=== PATIENT | male | born 1950 | race Caucasian/White ===

== ENCOUNTER 2024-09-20 11:12 | Outpatient (AMB) | payer MEDICARE, MEDICAID, SELFPAY ==
--- NOTE | 2024-09-20 11:14 | MHC.OFFVIS ---
Vital Signs 09/20/24 11:25 Height 5 ft 11 in Weight 193 lb 6 oz BMI 27.0 BP 116/76 Blood Pressure Location Lt brachial Position Sitting Respiration 16 Pulse 60 Pulse Source Pulse Oximeter Pulse Oximetry (%) 96 Oxygen Delivery Method Room Air Intake Visit Reasons: ITDD Discussion Intake Note: Patient comes in for initial visit was referred by [facility]. Reports pain 8/10. Allergies No Known Allergies Allergy (Verified 09/20/24 11:20) HPI Comments Details: Lv is very pleasant 73 years old gentleman who came to my office by referral of Dr. Lopez.. He reports that he complains on severe widespread pain, he came here to discuss treatment of the pain with intrathecal pain pump. He reports that he is suffering from widespread severe degenerative arthritis in bilateral lower extremities, feet he reports severe pain in the left hand, he has his right hand partially amputated, he states that it is industrial accident. He also complains on severe pain in lumbar spine, and pain in the neck. He reports his pain today 8/10. He reports that pain in the lower back is aggravated by flexing forward and prolonged sitting. He he is retired individual and on permanent disability. His pain in the feet is related to the broken bone in both feet. He needs walker for ambulation. Uses a special crutch today for his right hand to assist with walking. He reports that cold aggravate his pain and heat application make his pain better. His pain is most severe in the morning. He is currently taking OxyContin and methadone prescribed by Dr. Lopez. He had physical therapy done in the fall of 2022 < 1 year ago he reports improvement in mobility, improved activities of daily living, and minimal improvement with pain. He continues home exercise program. He had an MRI of the lumbar spine performed on him long time ago. He had injections performed on him by Dr. Lopez and before Dr. Lopez by other colleagues in the lumbar spine he denies any help from the injections. His past medical history significant for hypertension gout and arthritis. His past surgical history is significant for total knee replacement right 1995 total knee replacement left 1996 total shoulder replacement right 1996 and total shoulder replacement left 1997 traumatic amputation of the right hand 1983. He denies smoking cigarettes denies drinking alcohol and denies recreational drugs. She reports that that in the past he had 1 episode of excessive drinking and since then he stopped drinking 1 year ago. He does not have any history of rehab. Review of Systems ENT Reports Normal hearing present Card Reports no additional complaints Resp Reports no additional complaints GI Reports no additional complaints Reports no additional complaints Musc Reports as per HPI Neuro Reports no additional complaints, Reports Normal hearing present, Denies Abnormal speech present and Denies Sensory deficit (Neuro) Psych Reports no additional complaints Endo Reports no additional complaints Physical Exam Vital Signs: Last Vital Signs Pulse 60 09/20/24 11:25 Resp 16 09/20/24 11:25 BP 116/76 09/20/24 11:25 Pulse Ox 96 09/20/24 11:25 Oxygen Delivery Method Room Air 09/20/24 11:25 BMI result Body Mass Index 27.0 Const General: no acute distress Nutritional Appearance: average body habitus and well nourished Orientation/consciousness: patient oriented x3 Eyes General: appearance normal, both eyes and all related structures Pupils: Equal, round and reactive pupils present EOM: EOMs intact bilaterally Neck Neck: Yes full ROM Chest Chest palpation & inspection: normal inspection of the chest Resp Effort & Inspection: normal respiratory effort, able to speak in complete sentences, normal respiratory pattern, no audible wheezes and no cough Cardio Jugular venous distension: no JVD GI Inspection: Yes normal to inspection Back/Spine/Pelvis Other: Tenderness on palpation in projection of paraspinal spinal region lumbar spine. Flexing forward aggravates pain more than flexing backwards. Pain is axial in nature and does not radiate into sides or bilateral lower extremity. Neuro General: patient oriented x3 and gait normal Cranial nerves: Yes CN's II-XII intact bilaterally, Yes Equal, round and reactive pupils present, Yes Normal hearing present and Yes Ability to bilaterally elevate shoulders present Speech: No Abnormal speech present Gait exam (Neuro): Normal gait present Motor exam (neuro): 5/5 motor strength present throughout Sensory Exam: No Sensory deficit (Neuro) Extrem Other: Traumatic amputation of the right hand partial. In the projection of bilateral knees and bilateral shoulders there are very well-healed scar secondary to total shoulders and total knee replacements. General: No pedal edema Psych Speech and movement: Normal speech and movement present Affect: normal affect Attitude: cooperative Thought process: Normal thought process present Thought content: Normal thought content present Insight: Good insight present (Psych) Judgement: Good judgement present (Psych) Assessment & Plan Assessment & Plan (1) Vertebrogenic low back pain: Code(s): M54.51 - Vertebrogenic low back pain Category: Medical (2) Generalized osteoarthritis: Code(s): M15.9 - Polyosteoarthritis, unspecified Category: Medical (3) Gout, arthritis: Code(s): M10.9 - Gout, unspecified Category: Medical (4) Chronic pain syndrome: Code(s): G89.4 - Chronic pain syndrome Category: Medical (5) Spondylosis of lumbar region without myelopathy or radiculopathy: Code(s): M47.816 - Spondylosis without myelopathy or radiculopathy, lumbar region Category: Medical Plan I explained to the patient nature of the intrathecal drug delivery system pain pump, the risks and most common complications of the device. I gave him brochure to read aboutintrathecal pain pump. The patient will read brochure and he will decide whether or not this mode of treatment is appropriate for him. He will give us a call and we will send him for psychological evaluation. Once he is approved by [facility] psychology we would need to schedule him for a pain pump trial. We can start doing trials with non opioid medications. I am thinking about bupivacaine and baclofen trials. Prialt also can not be tried although this could be financially constrained for the patient. To go with Prialt he would need to discuss it with Prialt manufacturing company they might provide some discomfort for him. He has severe pain which is exacerbated by prolonged sitting and flexing forward. His pain is exacerbated with activities. 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 I will send him for MRI of the lumbar spine to evaluate the images for presence of the Modic type changes in the lower lumbar vertebra. He was instructed to give us a call and schedule an appointment for the follow-up with us after the MRI. At the same time if he decides to go for pain pump trial he needs to give us a call we will send him for psychological evaluation. He had multiple questions about durability and ability of the pain pump to relieve his pain some of the patient's will be referred to Your Office [employer] representatives. Orders: Orders MR lumbar spine wo con Today M54.51 - Vertebrogenic low back pain Patient Instructions: I here by testify spent 60 minutes in conversation with this patient as well as planning his care and organizing this note. Coding Level of Care Code New Pt Level 5 (65873) Diagnoses Vertebrogenic low back pain M54.51 Generalized osteoarthritis M15.9 Gout, arthritis M10.9 Chronic pain syndrome G89.4 Spondylosis of lumbar region without myelopathy or radiculopathy M47.816
[2024-09-20 11:25] VITALS: BP 116/76; PULSE 60; RESP 16; O2SAT 96; BMI 27.0
== END 2024-09-20 12:05 | disposition home or self-care (01) ==
PROVIDERS: PCP Physician Assistant Medical; Visit Provider Anesthesiology
DX: M54.51 Vertebrogenic low back pain (principal); M15.9 Polyosteoarthritis, unspecified; M10.9 Gout, unspecified; G89.4 Chronic pain syndrome; M47.816 Spondylosis without myelopathy or radiculopathy, lumbar region
CPT/HCPCS: 99205

== ENCOUNTER → 2024-09-20 11:12 | Outpatient (BNVA) | payer MEDICARE, SELFPAY | PROVIDERS: PCP Physician Assistant Medical; Visit Provider Anesthesiology | DX: M54.51 Vertebrogenic low back pain (principal); M15.9 Polyosteoarthritis, unspecified; M10.9 Gout, unspecified; M47.816 Spondylosis without myelopathy or radiculopathy, lumbar region; G89.4 Chronic pain syndrome | CPT/HCPCS: 99202 ==

== ENCOUNTER 2024-11-14 18:29 | Outpatient (REF) | payer MEDICARE, MEDICAID, SELFPAY | END 2024-11-14 18:30 | disposition home or self-care (01) | LOC: HO.MRI 18:29 | PROVIDERS: PCP Physician Assistant Medical; Visit Provider Anesthesiology | DX: M54.51 Vertebrogenic low back pain (principal) | CPT/HCPCS: 72148 ==

== ENCOUNTER 2025-05-17 15:16 | Outpatient (AMB) | payer MEDICARE, MEDICAID, SELFPAY ==
--- NOTE | 2025-05-17 15:35 | A.OFFVIS_ITS ---
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 He came today with mariel r desire to receive opioid medications in this office. I explained to him that he is in the office of interventional pain management physician, last time we offered him intrathecal pain pump, we sent him for the MRI of the lumbar spine which demonstrated Modic type changes at L2-L3 L4 and L5 vertebra. I told him today that I can still offer him intrathecal pain pump as well as intercept procedure to treat vertebra genic pain syndrome. The patient was insistent on prescription of methadone versus OxyContin for him. He said that he would perform methadone. I explained to the patient that if he wants methadone he can not go to methadone clinic declare himself an addict and receive methadone in the doses corresponding to his current medications we he receives. In the past this patient received significant doses of the opioids. I explained to him that we prescribe chronic opioid therapy only in conjunction of and with interventional pain medicine. This was very prolonged conversation all the risks and benefits of the intrathecal pain pump and RFA of the basivertebral nerves were explained to the patient. Prior: He reports that he complains on severe widespread pain, he came here to discuss treatment of the pain with intrathecal pain pump. He reports that he is suffering from widespread severe degenerative arthritis in bilateral lower extremities, feet he reports severe pain in the left hand, he has his right hand partially amputated, he states that it is industrial accident. He also complains on severe pain in lumbar spine, and pain in the neck. He reports his pain today 07/08. He reports that pain in the lower back is aggravated by flexing forward and prolonged sitting. He he is retired individual and on permanent disability. His pain in the feet is related to the broken bone in both feet. He needs walker for ambulation. Uses a special crutch today for his right hand to assist with walking. He reports that cold aggravate his pain and heat application make his pain better. His pain is most severe in the morning. He is currently taking OxyContin and methadone prescribed by Dr. Lopez. He had physical therapy done in the fall of 2022 < 1 year ago he reports improvement in mobility, improved activities of daily living, and minimal improvement with pain. He continues home exercise program. He had injections performed on him by Dr. Lopez and before Dr. Lopez by other colleagues in the lumbar spine he denies any help from the injections. His past medical history significant for hypertension gout and arthritis. His past surgical history is significant for total knee replacement right 1995 total knee replacement left 1996 total shoulder replacement right 1996 and total shoulder replacement left 1997 traumatic amputation of the right hand 1983. He denies smoking cigarettes denies drinking alcohol and denies recreational drugs. She reports that that in the past he had 1 episode of excessive drinking and since then he stopped dri nking 1 year ago. He does not have any history of rehab. Review of Systems Const All systems reviewed & are unremarkable except as noted in HPI and below ENT Reports Normal hearing present Neuro Reports Normal hearing present, Denies Abnormal speech present and Denies Sensory deficit (Neuro) Physical Exam Vital Signs: Last Vital Signs Pulse 59 05/17/25 15:36 Resp 18 05/17/25 15:36 BP 119/58 L 05/17/25 15:36 Pulse Ox 100 05/17/25 15:36 Const General: no acute distress Nutritional Appearance: average body habitus and well nourished Orientation/consciousness: patient oriented x3 Eyes General: appearance normal, both eyes and all related structures Pupils: Equal, round and reactive pupils present EOM: EOMs intact bilaterally Neck Neck: Yes full ROM Chest Chest palpation & inspection: normal inspection of the chest Resp Effort & Inspection: normal respiratory effort, able to speak in complete sentences, normal respiratory pattern, no audible wheezes and no cough Cardio Jugular venous distension: no JVD GI Inspection: Yes normal to inspection Back/Spine/Pelvis Other: Tenderness on palpation in projection of paraspinal spinal region lumbar spine. Flexing forward aggravates pain more than flexing backwards. Pain is axial in nature and does not radiate into sides or bilateral lower extremity. Neuro General: patient oriented x3 and gait normal Cranial nerves: Yes CN's II-XII intact bilaterally, Yes Equal, round and reactive pupils present, Yes Normal hearing present and Yes Ability to bilaterally elevate shoulders present Speech: No Abnormal speech present Gait exam (Neuro): Normal gait present Motor exam (neuro): 5/5 motor strength present throughout Sensory Exam: No Sensory deficit (Neuro) Extrem Other: Traumatic amputation of the right hand partial. In the projection of bilateral knees and bilateral shoulders there are very well-healed scar secondary to total shoulders and total knee replacements. General: No pedal edema Psych Speech and movement: Normal speech and movement present Affect: normal affect Attitude: cooperative Thought process: Normal thought process present Thought content: Normal thought content present Insight: Good insight present (Psych) Judgement: Good judgement present (Psych) Results Reviewed Results Reviewed: MR I of the lumbar spine was obtained using routine sequences without SEPTEMBER 2025 contrast. FINDINGS: Transitional vertebral anatomy. 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 Moderate right convex curvature of the thoracal lumbar spine. Prominent left convex curvature of the lumbar spine. Moderate right lateral translations of T12-L2. Moderate left lateral translations of L3-L5. Mild degenerative stepwise retrolistheses of T12-L5. Advanced degenerative disc disease from T10-L5. Associated mixed Modic type discogenic endplate changes including Modic type I discogenic edema from T10-L4 and at L5-S1. Mild marrow edema within the posterior elements of L3-S1 consistent with degenerative stress reaction. No additional suspicious marrow edema. Small Schmorl's nodes from T11-L1. Otherwise, the vertebral body heights are well-maintained. The conus medullaris terminates at the level of L1. The distal spinal cord is normal in appearance. Moderate fatty atrophy of the posterior paraspinal musculature. Moderate subcutaneous edema within the posterior soft tissues of the back from L1-S3. No additional significant abnormalities of the paraspinal musculature. Limited evaluation of the intra-abdominal structures without significant abnormalities. The abdominal aorta is of normal contour and caliber. AXIAL SPINAL LEVELS: L1-L2: Moderate diffuse disc bulge with posterior osseous ridging. There is severe right and moderate left facet joint arthropathy. There is moderate to severe right and moderate left neural foraminal stenosis. There is stenosis of the subarticular zones with moderate spinal canal stenosis centrally exacerbated by prominent dorsal epidural lipomatous tissue. L2-L3: Moderate diffuse disc bulge with posterior osseous ridging. There is severe right worse than left facet joint arthropathy. There is moderate to severe right and moderate left neural foraminal stenosis. There is stenosis of the right subarticular zone with moderate spinal canal stenosis centrally exacerbated by prominent dorsal epidural lipomatous tissue. L3-L4: Moderate diffuse disc bulge with posterior osseous ridging. There is severe bilateral facet joint arthropathy. There is moderate left and mild right neural foraminal stenosis. There is stenosis of the subarticular zones with mild to moderate spinal canal stenosis centrally. L4-L5: Moderate diffuse disc bulge with posterior osseous ridging. There is severe left and moderate right facet joint arthropathy. There is moderate to severe left and moderate right neural foraminal stenosis. There is stenosis of the left worse than right subarticular zones with mild to moderate spinal canal stenosis centrally. L5-S1: Mild diffuse disc bulge. There is severe left and moderate right facet joint arthropathy. There is moderate to severe right and moderate left neural foraminal stenosis. There is narrowing of the subarticular zones with no overt spinal canal stenosis centrally. MR/MR lumbar spine wo con IMPRESSION: Transitional vertebral anatomy. 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 Advanced multilevel degenerative spondyloarthropathy of the lumbar spine as described in detail above. Most notably, there are moderate spinal canal stenoses from L1-L5. Narrowing/stenoses of the subarticular zones and moderate to severe neural foraminal stenoses from L1-S1. Assessment & Plan Assessment & Plan (1) Vertebrogenic low back pain: Code(s): M54.51 - Vertebrogenic low back pain Category: Medical (2) Generalized osteoarthritis: Code(s): M15.9 - Polyosteoarthritis, unspecified Category: Medical (3) Gout, arthritis: Code(s): M10.9 - Gout, unspecified Category: Medical (4) Chronic pain syndrome: Code(s): G89.4 - Chronic pain syndrome Category: Medical (5) Spondylosis of lumbar region without myelopathy or radiculopathy: Code(s): M47.816 - Spondylosis without myelopathy or radiculopathy, lumbar region Category: Medical Plan Prolonged and extensive discussion was held today about intrathecal pain pump and intercept radiofrequency ablation procedure. The treatment of the pain of this patient patient with methadone was deferred to methadone clinic. I also told him that there are Suboxone clinics which also treat addiction to the medication as well as pain. In this office I can offer him interventional procedures as above. There is advanced Modic type 1 and 2 changes in L2 through L5 and S1 vertebra. This maybe a subject of intercept procedure. Risks and benefits were explained to the patient. If patient wants to do the Intrathecal drug delivery system treatment I would like to try intercept procedure 1st before the treatment with trials of the pain pump. Because he currently is taking opioid medications I would like to start trial with non opioid medications such as bupivacaine, baclo fen, clonidine. Patient Instructions: I here by testify that I spent 45 minutes in conversation with this patient as well as planning his care and organizing this note. Coding Level of Care Code Est Pt Level 5 (53795) Diagnoses Vertebrogenic low back pain M54.51 Generalized osteoarthritis M15.9 Gout, arthritis M10.9 Chronic pain syndrome G89.4 Spondylosis of lumbar region without myelopathy or radiculopathy M47.816
[2025-05-17 15:36] VITALS: BP 119/58; PULSE 59; RESP 18; O2SAT 100
--- OUTSIDE RECORDS SUMMARY | 2025-05-17 16:33 | XMS_ITS | Clinical Summary ---
Author Organization [address] [facility] Address [address] [place] [address] Phone Care Team Providers Care Auto Electrical Technician Name Role Phone Mike Gomez Primary Care Provider [phone] Allergies No known active allergies Medications bumetanide (BUMEX) 1 mg tablet Take 2 tablets (2 mg total) by mouth 1 (one) time each day. 06/06/20 24 Active celecoxib (CeleBREX) 200 mg capsule Take 1 capsule (200 mg total) by mouth 2 (two) times a day if needed for moderate pain. 04/20/20 23 Active fluticasone propionate (FLONASE) 50 mcg/actuation nasal spray Administer 2 sprays into affected nostril(s) 1 (one) time each day. 01/01/20 23 Active oxyCODONE (ROXICODONE) 15 mg immediate release tablet Take 1 tablet (15 mg total) by mouth 3 (three) times a day if needed. 09/12/20 24 Active oxyCODONE (ROXICODONE) 30 mg immediate release tablet Take 1 tablet (30 mg total) by mouth 3 (three) times a day if needed. Take 1 Tablet by mouth 4 times daily as needed for Pain Active oxyCODONE (OxyCONTIN) 40 mg 12 hr abuse-deterren t tablet Take 1 tablet (40 mg total) by mouth 2 (two) times a day. 06/09/20 23 Active methadone (DOLOPHINE) 10 mg tablet Take 1 tablet (10 mg total) by mouth every 6 (six) hours if needed. Take 1 Tablet by mouth every 6 hours as needed for Pain 05/26/20 23 Active allopurinoL (ZYLOPRIM) 100 mg tablet TAKE ONE TABLET BY MOUTH TWICE A DAY 180 tablet 3 11/05/20 24 Active FeroSuL 325 mg (65 mg iron) tablet TAKE ONE TABLET BY MOUTH EVERY DAY 90 tablet 3 11/05/20 24 Active atenoloL (TENORMIN) 50 mg tablet TAKE ONE TABLET BY MOUTH EVERY DAY 90 tablet 3 11/05/20 24 Active B cmplx 4-vit J7-U-tlund-zin c (Vital-D Rx) 1,750-60-1-12. 5 lqbr-ti-ja-mg tablet Take 1 tablet by mouth 1 (one) time each day. 30 each 11 12/11/19 25 Active amLODIPine (NORVASC) 5 mg tablet TAKE ONE TABLET BY MOUTH EVERY DAY 90 tablet 1 12/19/19 25 Active terbinafine (LamISIL AT) 1 % cream Apply topically 2 (two) times a day. For 2 weeks 30 g 03/01/20 25 Active Ventolin HFA 90 mcg/actuation inhaler INHALE 2 PUFFS EVERY 4 HOURS NEEDED FOR COUGH OR WHEEZING 18 g 1 03/26/20 25 Active predniSONE (DELTASONE) 20 mg tablet TAKE ONE TABLET BY MOUTH EVERY DAY 30 tablet 1 05/11/20 25 Active predniSONE (DELTASONE) 20 mg tablet TAKE ONE TABLET BY MOUTH EVERY DAY 30 tablet 1 03/26/20 25 025 Discontinued Active Problems Problem Noted Date Diagnosed Date Fatty liver 11/16/2023 Iron deficiency anemia 06/30/2022 Anemia, unspecified 02/01/2022 Lower extremity edema 12/31/2021 Chronic foot pain 05/06/2021 Colon polyp 08/19/2018 Injury of right hand 12/03/2016 MGUS (monoclonal gammopathy of unknown significa nce) 09/19/2015 Benign neoplasm of colon 02/13/2013 Overview (10/10/2024): Small right colon serrated adenoma 2012, next cn 2018. Henrik nodes (DJD hand) 10/31/2010 Chronic pain 09/10/2008 Gout 03/29/2008 Hypertension 07/09/2006 Encounters Date Type Department Care Team Description 05/08/2025 2:00 PM EDT Office Visit Orthopedic Surgery - [place] [address] [facility] [address] [place] [phone] Kushal Gonzalez DPM Charcot ankle, right (Primary Dx); Charcot ankle, left; Difficulty walking; Lumbosacral radiculopathy; Ulcer of toe of right foot, with fat layer exposed ([facility] V24, [facility] V28) 05/04/2025 Telephone Adult Medicine [address] [phone] Mike Gomez PA 05/03/2025 7:00 AM EDT Ancillary Procedure [facility] - [facility] [address] [facility] [address] [place] [id number] MGUS (monoclonal gammopathy of unknown significance); Anemia due to chronic kidney disease, unspecified CKD stage; Gout, unspecified cause, unspecified chronicity, unspecified site; Primary hypertension; Iron deficiency anemia, unspecified iron deficiency anemia type; Injury of right hand, subsequent encounter; PVD (peripheral vascular disease) ([facility] V24) 04/12/2025 Telephone Adult [address] [phone] Mike Gomez PA Forms/questionnaires ([facility]) 04/03/2025 3:30 PM EDT Office Visit Adult Medicine [address] [phone] Mike Gomez PA PVD (peripheral vascular disease) ([facility] V24) (Primary Dx); MGUS (monoclonal gammopathy of unknown significance); Anemia due to chronic kidney disease, unspecified CKD stage; Gout, unspecified cause, unspecified chronicity, unspecified site; Primary hypertension; Iron deficiency anemia, unspecified iron deficiency anemia type; Injury of right hand, subsequent encounter; Screening for malignant neoplasm of colon 03/09/2025 10:15 AM EDT - 03/09/2025 11:59 PM EDT Hospital Encounter [address] [phone] Upper respiratory tract infection, unspecified type Discharge Disposition: Home or Self Care 03/09/2025 9:45 AM EDT Office Visit Adult [address] [phone] Noni Cruz PA Upper respiratory tract infection, unspecified type (Primary Dx) 03/08/2025 Telephone Adult Medicine [address] [phone] Mike Gomez PA Cough; Hoarseness 03/01/2025 10:30 AM EDT Office Visit [address] [phone] Noni Cruz PA Ulcer of toe of right foot, with fat layer exposed ([facility] V24, [facility] V28) (Primary Dx); Tinea pedis of right foot; Prediabetes 02/27/2025 Telephone Adult Medicine [address] [phone] Mike Gomez PA FYI 02/20/2025 Telephone Adult Medicine [address] [phone] Mike Gomez PA Prior Authorization from Last 3 Months Immunizations Name Administration Dates Next Due H1N1 Inj Preservative Free 11/13/2009 Influenza Quadravalent, MDCK , 0.5ml, preservative free (Flucelvax) 6mo and older 12/14/2019 Influenza Quadravalent, MDCK , 0.5ml, with preservative (Flucelvax) 6mo and older 09/24/2017 Influenza trivalent, 0.5mL ( Fluad) 65yo and older 12/11/2024,08/06/2023,10/16/2022,12/31,01/31/2021,09/21/2018 Influenza trivalent, 0.5mL, preservative free (Fluarix; FluLaval; Fluzone) ages 6mo and older (Afluria) 3 years and older 12/03/2016,08/27/2015,08/30/2014,09/15,09/24/2011,08/06/2010,11/13/2009 ,11/04/2007 Pfizer SARS-CoV-2 COVID-19, mRNA, LNP-S, preservative free 04/10/2021,03/20/2021 Pneumococcal conjugate 13 va lent (Prevnar 13, PCV13) 2mo and older 03/08/2019 Pneumococcal polysaccharide 23 valent (Pneumovax 23) 2yo and older 03/02/2018 Td Tetanus diptheria (Tdvax) 7yo and older 05/15/2018 Td, Unspecified 06/29/2005 Tdap Tetanus diptheria acell ular pertussis (Boostrix; Adacel) 7yo and older 12/28/2012 Zoster Live 08/30/2014 Surgical History Surgery Date Site/Laterality Comments TOTAL KNEE ARTHROPLASTY PROCEDURE: HISTORICAL TOTAL KNEE REPLACE; COMMENT: bilateral SHOULDER SURGERY PROCEDURE: HISTORICAL SHOULDER SURGERY; COMMENT: bilateral shoulder replacements OTHER SURGICAL HISTORY PROCEDURE: ---- OTHER ----; COMMENT: partial hand amputation COLONOSCOPY W/ BIOPSIES 2012 and 2017 PROCEDURE: NM COLONOSCOPY W/BIOPSY SINGLE/MULTIPLE; COMMENT: small serrated adenoma right colon. 2012 and a polyp 2017 done at [facility] Medical History Medical History Date Comments Benign neoplasm of colon 02/13/2013 DX:Geovani gn neoplasm of colon Hypertension 07/09/2006 DX:Hypertension History of gout 09/16/2015 DX:History of go ut MGUS (monoclonal gammopathy of unknown significance) 09/19/2015 DX:MGUS (monoclonal gammopat hy of unknown significance) Family History Medical History Relation Name Comments Autoimmune disease Neg Hx Breast cancer Neg Hx Colon cancer Neg Hx Coronary artery disease Neg Hx Diabetes Neg Hx Heart attack Neg Hx Heart failure Neg Hx Hyperlipidemia Neg Hx Hypertension Neg Hx Mental illness Neg Hx Prostate cancer Neg Hx Sleep apnea Neg Hx Thyroid disease Neg Hx Relation Name Status Comments Brother 1 Alive hyperlipidemia Brother 2 Alive Father (Age 59) cva Mother (Age 86) dm, chf Sister 1 Alive Sister 2 Alive Social History Tobacco Use Types Packs/Day Years Used Date Smoking Tobacco: Never Smokeless Tobacco: Never Alcohol Use Standard Drinks/Week Comments No 0 (1 standard drink = 0.6 oz pur e alcohol) Housing Instability Answer Date Recorde d Are you worried that in the next 2 months you may not have stable housing? No 03/01/2025 Food Access & Nutrition Answer Date Rec orded Do you have access to a vari ety of food including fruits and vegetables? Yes 03/01/2025 Access to Healthcare Answer Date Record ed Within the last 3 months, ho w many times did you visit the emergency department for your medical care? 0 03/01/2025 Health Literacy Answer Date Recorded How often do you need to hav e someone help you when you read instructions, pamphlets, or other written material from your doctor or pharmacy? Never 03/01/2025 Caregiver: How often do you need to have someone help you when you read instructions, pamphlets, or other written material from your doctor or pharmacy? Not on file 03/01/2025 Financial Risk Answer Date Recorded How hard is it for you to pa y for the very basics like food, housing, medical care, and air conditioning / heating? Not very hard 03/01/2025 Transportation Answer Date Recorded Has the lack of transportati on kept you from meetings, work, or from getting things needed for daily living? No Has the lack of transportati on kept you from medical appointments or from getting medications? No 03/01/2025 Social Isolation Answer Date Recorded How often do you feel lonely or isolated from th ose around you? Never 03/01/2025 Food Risk Answer Date Recorded Within the past 12 months we worried whether our food would run out before we got money to buy more. Never true 03/01/2025 Within the past 12 months th e food we bought just didn't last and we didn't have money to get more. Never true 03/01/2025 Dependent Care Answer Date Recorded Do you need help finding or paying for care for your loved ones. For example, child care assistant or elderly care for an older adult? No 03/01/2025 Education Answer Date Recorded Do you think completing more education or training, like finishing a GED, going to college, or learning a trade, would be helpful for you? No 03/01/2025 Employment and Income Answer Date Recor ded During the last four weeks, have you been actively looking for work? No 03/01/2025 Living Situation Answer Date Recorded What is your living situation? 0 03/01/2025 Sex and Gender Information Value Date Recorded Sex Assigned at Not on file Legal Sex Male 7:35 AM EST Gender Identity Not on file Sexual Orientation Not on file Obstetrics History Last Filed Vital Signs Vital Sign Reading Time Taken Comments Blood Pressure 130/70 04/03/2025 4:04 PM EDT Pulse 66 04/03/2025 3:44 PM EDT Temperature 36.2 C (97.1 F) 04/03/2025 3:44 PM EDT Respiratory Rate 17 04/03/2025 3:44 PM EDT Oxygen Saturation 96% 03/09/2025 10:05 AM EDT Inhaled Oxygen Concentration - - Weight 92.1 kg (203 lb) 05/08/2025 2:32 PM EDT Height 170.2 cm (5' 7.01 ) 05/08/2025 2:32 PM ED T Body Mass Index 31.79 05/08/2025 2:32 PM EDT Plan of Treatment Upcoming Encounters Date Type Department Care Team (Late st Contact Info) Description 08/08/2025 2:00 PM EDT Office Visit Orthopedic Surgery - [place] [address] [phone] Kushal Gonzalez, RUCHI [address] [address] 10/19/2025 12:45 PM EST Office Visit Adult Medicine [facility] [address] [place] [phone] Mike Gomez PA [address] [place] [address] Health Maintenance Due Date Last Done Comments RSV Immunization Adult Patients (1 - Risk 60-74 years 1-dose series) 2012 Zoster Vaccines (1 of 2) 10/25/2014 08/30/2014 COVID-19 Vaccine (3 - Pfizer risk series) 05/08/2021 04/10/2021, 03/20/2021 Colorectal Cancer Screening: Colonoscopy 08/18/2023 08/18/2018 Medicare Annual Wellness Visit 08/06/2024 08/06/2023 Hypertension/CHF/CAD Annual BMP Blood Test 10/05/2024 10/05/2023 Depression Screening 03/01/2026 03/01/2025 Falls Risk Assessment 03/01/2026 03/01/2025, 025 Social Influencers of Health Screening 03/01/2026 03/01/2025 DTaP,Tdap,and Td Vaccines (4 - Td or Tdap) 05/15/2028 05/15/2018, 12/28/2012, 06/29/2005 Cholesterol Screening (Lipid Panel) 10/05/2028 10/05/2023 Hepatitis C Screening Completed 10/15/2013 Pneumococcal Vaccine: 50+ Years Completed 03/08/2019, 03/02/2018 Influenza Vaccine Completed 12/11/2024, , 10/16/2022, Additional history exists HIB Vaccines Aged Out No longer eligi ble based on patient's age to complete this topic HPV Vaccines Aged Out No longer eligi ble based on patient's age to complete this topic Hepatitis A Vaccines Aged Out No long er eligible based on patient's age to complete this topic Hepatitis B Vaccines Aged Out No long er eligible based on patient's age to complete this topic IPV Vaccines Aged Out No longer eligi ble based on patient's age to complete this topic MMR Vaccines Aged Out No longer eligi ble based on patient's age to complete this topic Meningococcal ACWY Vaccine Aged Out N o longer eligible based on patient's age to complete this topic Meningococcal B Vaccine Aged Out No l onger eligible based on patient's age to complete this topic RSV Immunization Patients Under 20 months Aged Out No longer eligible based on patient's age to complete this topic Varicella Vaccines Aged Out No longer eligible based on patient's age to complete this topic Procedures Procedure Name Priority Date/Time Associated Diagnosis Comments VAS US DUPLEX LOWER EXT ARTERIES BILAT WITH VIRGIL Routine 05/03/2025 8:13 AM EDT MGUS (monoclonal gammopathy of unknown significance) Anemia due to chronic kidney disease, unspecified CKD stage Gout, unspecified cause, unspecified chronicity, unspecified site Primary hypertension Iron deficiency anemia, unspecified iron deficiency anemia type Injury of right hand, subsequent encounter PVD (peripheral vascular disease) (CMS/HCC V24) XR CHEST 2 VIEWS STAT 03/09/2025 10:3 4 AM EDT Upper respiratory tract infection, unspecified type POC INFLUENZA A/B Routine 03/09/2025 10: 26 AM EDT Upper respiratory tract infection, unspecified type POC RAPID [id number], MOLECULAR Routine 03/09/2025 10:25 AM EDT Upper respiratory tract infection, unspecified type POC RAPID STREP A Routine 03/09/2025 10: 25 AM EDT Upper respiratory tract infection, unspecified type HEMOGLOBIN A1C Routine 03/01/2025 11:21 AM EDT Prediabetes ANNUAL BMP BLOOD TEST Routine 10/05/2023 LIPID PANEL Routine 10/05/2023 COLONOSCOPY Routine 08/18/2018 HEPATITIS C SCREENING Routine 10/15/2013 from Last 3 Months or Most Recently Relevant to Health Maintenance Results * Vascular US duplex lower extremity arteries bilateral with VIRGIL (05/03/2025 8:13 AM EDT) Left Dist External Iliac PSV 514 cm/s CV [facility] LAB Left Prox External Iliac PSV 380 cm/s CV [facility] Left AT dist sys PSV 111 cm/s CV VAS LAB Left AT mid sys PSV 40 cm/s CV VAS LAB Left AT prox sys PSV 62 cm/s CV VAS LAB Left DIVIDEND CLERK prox sys PSV 219 cm/s CV VAS LAB Left mid peroneal sys PSV 0 cm/s CV VAS LAB Left popliteal dist sys PSV 68 cm/s CV VAS LAB Left popliteal prox sys PSV 49 cm/s CV VAS LAB Left PT dist sys PSV 52 cm/s CV VAS LAB Left PT mid sys PSV 64 cm/s CV VAS LAB Left PT prox sys PSV 69 cm/s CV VAS LAB Left super femoral dist sys PSV 66 cm/s CV VAS LAB Left super femoral mid sys PSV 70 cm/s CV VAS LAB Left super femoral prox sys PSV 80 cm/s CV VAS LAB Right Dist External Iliac PSV 115 cm/s CV VAS LAB Right Prox External Iliac PSV 97 cm/s CV VAS LAB Right AT dist sys PSV 57 cm/s CV VAS LAB Right AT mid sys PSV 49 cm/s CV VAS LAB Right AT prox sys PSV 150 cm/s CV VAS LAB Right DIVIDEND CLERK prox sys PSV 161 cm/s CV VAS LAB Right mid peroneal sys PSV 55 cm/s CV VAS LAB Right popliteal dist sys PSV 110 cm/s CV VAS LAB Right popliteal prox sys PSV 103 cm/s CV VAS LAB Right PT dist sys PSV 123 cm/s CV VAS LAB Right PT mid sys PSV 76 cm/s CV VAS LAB Right PT prox sys PSV 155 cm/s CV VAS LAB Right super femoral dist sys PSV 87 cm/s CV VAS LAB Right super femoral mid sys PSV 123 cm/s CV VAS LAB Right super femoral prox sys PSV 284 cm/s CV V[facility] LAB Right arm BP 133 mmHg CV [facility] Left arm BP 143 mmHg CV V[facility] LAB Right posterior tibial 158 mmHg CV [facility] Right Dorsalis Pedis 167 mmHg CV V[facility] LAB Right VIRGIL 1.17 CV VAS LAB Left posterior tibial 121 mmHg CV V[facility] LAB Left Dorsalis Pedis 127 mmHg CV VAS LAB Left VIRGIL 0.89 CV VAS LAB Anatomical Region Laterality Modality Vascular, Abdomen Ultrasound Narrative 05/03/2025 2:03 PM EDT Right Moderate plaques in right EIA, DIVIDEND CLERK, DIVIDEND CLERK, and popliteal artery. 50 to 99% (close to 50%) stenosis in the right proximal SFA. Triple vessel runoff in the right calf. Right ankle pressure and ankle-brachial index are normal. Right VIRGIL 1.17. A lymph node noted in the right groin. Left Severe plaques in the left EIA with 50 to 99% stenosis in the left EIA. The stenosis continue into left DIVIDEND CLERK. Flow in left SFA and other distal arteries have blunted flow with monomorphic appearance. Left peroneal artery is occluded. Left ankle pressure and ankle-brachial index mildly reduced. Left VIRGIL 0.89. 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 The common femoral artery has triphasic flow. The profunda femoris artery has triphasic flow. The superficial femoral artery has triphasic flow. The proximal superficial femoral artery is turbulent. The popliteal artery has triphasic flow. The anterior tibial artery has triphasic flow. The posterior tibial artery has triphasic flow. The mid peroneal artery has triphasic flow. Left Lower Arterial Duplex The distal external iliac artery is turbulent. The distal external iliac artery has monophasic flow. The common femoral artery has monophasic flow. The profunda femoris artery has biphasic flow. The superficial femoral artery has monophasic flow. The popliteal artery has monophasic flow. The anterior tibial artery has monophasic flow. The posterior tibial artery has monophasic flow. The mid peroneal artery is occluded. Educational Fundraising Director Details A larsen scale, color and doppler analysis ultrasound was performed. During the study longitudinal views were obtained. Continuous wave doppler, pulsed wave doppler and pulsed volume recording (PVR) was performed. Overall the study quality was poorly visualized and technically difficult. Study was technically difficult due to: acoustic shadowing and body habitus. us Mike JEWELL CV VASCULAR PROCEDURES Fi nal Result * XR Chest 2 Views (03/09/2025 10:34 AM EDT) Anatomical Region Laterality Modality Body Radiographic Jenny ging 03/09/2025 10:4 0 AM EDT Impressions 03/09/2025 10:42 AM EDT Low lung volumes. No focal consolidation. -------- FINAL REPORT -------- Dictated By: Matthew Mackey Dictated Date: 03/09/2025 10:40 ET Assigned Physician: Matthew Mackey Reviewed and Electronically Signed By: Matthew Mackey Signed Date: 03/09/2025 10:42 ET Workstation ID: [id number] Transcribed By: Self Edit Transcribed Date: 03/09/2025 10:40 ET Narrative 03/09/2025 10:42 AM EDT XR CHEST 2 VIEWS Reason: uri x 3 days, productive cough Comparison: None FINDINGS: Lungs: Low lung volumes. Linear atelectasis in the right lung base. Pleura: No pleural effusion or pneumothorax. Heart/Mediastinum: Cardiomediastinal silhouette is within normal limits. Bones : Status post bilateral shoulder replacement. Procedure Note Matthew Mackey MD - 03/09/2025 XR CHEST 2 VIEWS Reason: uri x 3 days, productive cough Comparison: None FINDINGS: Lungs: Low lung volumes. Linear atelectasis in the right lung base. Pleura: No pleural effusion or pneumothorax. Heart/Mediastinum: Cardiomediastinal silhouette is within normal limits. Bones : Status post bilateral shoulder replacement. IMPRESSION: Low lung volumes. No focal consolidation. -------- FINAL REPORT -------- Dictated By: Matthew Mackey Dictated Date: 03/09/2025 10:40 ET Assigned Physician: Matthew Mackey Reviewed and Electronically Signed By: Matthew Mackey Signed Date: 03/09/2025 10:42 ET Workstation ID: [id number] Transcribed By: Self Edit Transcribed Date: 03/09/2025 10:40 ET us Noni JEWELL IMG XR PROCEDURES Final Result * POC Influenza A/B manually resulted (03/09/2025 10:26 AM EDT) Rapid Influenza A AGN POC Negative Negative Rapid Influenza B AGN POC Negative Negative Internal Control Pass Yes Yes Swab 03/09/2025 10:2 6 AM EDT Noni JEWELL POINT OF CARE TEST ENTER/EDIT OR DERABLES Final Result * Poc Rapid [id number], MOLECULAR (03/09/2025 10:25 AM EDT) COVID-19/SARS- COV-2 Rapid POC Negative Negative Internal Control Pass Yes Yes Swab Nasopharyngeal structure / Unknown 03/09/2025 10:25 AM EDT us Noni Cruz PA POINT OF CARE TEST ENTER/EDIT OR DERABLES Final Result * POC rapid strep A manually resulted (03/09/2025 10:25 AM EDT) [facility] Rapid Strep A Screen POC Negative Negative Internal Control Pass Yes Yes Swab Structure of anterior portion of neck / Unknown 03/09/2025 10:25 AM EDT us Noni Cruz PA POINT OF CARE TEST ENTER/EDIT OR DERABLES Final Result * Hemoglobin A1c (03/01/2025 11:21 AM EDT) [facility] Hemoglobin A1C 5.4 <6.5 % LAB CHEMISTRY METHOD 03/01/2025 11:03 PM EDT [facility] Mean Bld Glu Estim. 108 mg/dL LAB CHEMISTRY METHOD 03/01/2025 11:03 PM EDT [facility] Blood Venous blood specimen / Unknown Venipuncture / Unknown 03/01/2025 11:21 AM EDT 03/01/2025 11:21 AM EDT Noni Cruz PA LAB BLOOD ORDERABLES Final Resul t [facility] [address] [place] [address], [place] [phone] * Annual BMP Blood Test (10/05/2023) [facility] Annual BMP Blood Test abstracted Historical Provider MD HEALTH MAINTENANCE Final Result * (ABNORMAL) Lipid panel (10/05/2023) [facility] LDL/HDL Ratio 3 0 - 4 Triglycerides 187(A) 0 - 150 mg/dL Cholesterol 203(A) 0 - 200 mg/dL HDL 64 >=40 mg/dL LDL Cholesterol 102(A) 0 - 100 mg/dL Blood Venous blood specimen / Unknown Historical Provider LAB BLOOD ORDERABLES Wandy l Result * Colonoscopy (08/18/2018) Colonoscopy no interpretation , abstracted Anatomical Region Laterality Modality Other Historical Provider HEALTH MAINTENANCE Final Result * Hepatitis C Screening (10/15/2013) Pathologist [facility] Hepatitis C Screening abstracted Historical Provider HEALTH MAINTENANCE Final Result from Last 3 Months or Most Recently Relevant to Health Maintenance Insurance MEDICAID - [place] MEDICARE Care Teams Auto Electrical Technician Relationship Specialty Start Date End Date Mike Gomez PA [address] [place] [id number] PCP - General Internal Medicine 10/23/20
== END 2025-05-17 15:52 | disposition home or self-care (01) ==
LOC: HO.PMC 15:17
PROVIDERS: PCP Physician Assistant Medical; Visit Provider Anesthesiology
DX: M54.51 Vertebrogenic low back pain (principal); M15.9 Polyosteoarthritis, unspecified; M10.9 Gout, unspecified; G89.4 Chronic pain syndrome; M47.816 Spondylosis without myelopathy or radiculopathy, lumbar region
CPT/HCPCS: 99215

== ENCOUNTER → 2025-05-17 15:16 | Outpatient (BNVA) | payer MEDICARE, MEDICAID, SELFPAY | PROVIDERS: PCP Physician Assistant Medical; Visit Provider Anesthesiology | DX: M54.51 Vertebrogenic low back pain (principal); M15.9 Polyosteoarthritis, unspecified; M10.9 Gout, unspecified; M47.816 Spondylosis without myelopathy or radiculopathy, lumbar region; G89.4 Chronic pain syndrome | CPT/HCPCS: 99212 ==

== ENCOUNTER 2025-09-14 12:28 | Inpatient (IN) | payer MEDICARE, MEDICAID, SELFPAY ==
[2025-09-14] VITALS (12 sets, daily range): BP systolic 85–139; BP diastolic 45–72; PULSE 52–83; RESP 8–20; TEMP 36.9–39.6; O2SAT 92–97; BMI 29.9
--- NOTE | ~2025-09-14 | CT_ITS ---
EXAMINATION: CT CERVICAL SPINE WITHOUT CONTRAST CLINICAL INFORMATION: Status post fall. Injury. COMPARISON: None available. TECHNIQUE: Contiguous axial images through the cervical spine using 3 mm collimation with bone and soft tissue algorithm. Sagittal and coronal reformatted images acquired. DLP: 636.[address] examination was performed using dose optimization techniques as appropriate, variously including the following: *Automated exposure control *Adjustment of mA and/or kV according to patient size (this includes techniques or standardized protocols for targeted exams where dose is matched to indication/reason for exam; i.e. extremities or head) *Use of iterative reconstruction technique FINDINGS: Limited by patient's motion artifact. Degenerative changes in the craniocervical junction and periodontal C1 region. Craniocervical junction is intact with normal alignment between the occipital condyles and the lateral masses of C1. Levoconvex curvature of the cervical spine. Multilevel marginal osteophyte formation and endplate sclerosis subchondral cyst formation decreased intervertebral disc height pronounced at C3-4 C4-5 and to a lesser extent C5-C6 C6-7 and C7-T1. Grade 1 anterolisthesis C7-T1 likely degenerative. Bilateral facet joint hypertrophy at multiple levels from C2-3 to C7-T1. Incomplete ankylosis at C3-4 and C4-5 levels. C1 is intact. C2 is intact. C3 is intact. C4 is intact. C5 is intact. C6 is intact. C7 is intact. No gross prevertebral compartment hematoma. Calcified plaques in the carotic arteries with a retropharyngeal trajectory of the ICAs. CT/CT cervical spine wo IV con IMPRESSION: Multilevel cervical spondylosis and levoconvex scoliosis versus positioning without gross acute fracture or trauma-related listhesis. Fleischner guidelines were followed. Electronically signed by: Jose Sandoval MD 09/14/2025 03:23 PM EDT
--- NOTE | ~2025-09-14 | US_ITS ---
EXAMINATION: US ABDOMEN LIMITED CLINICAL INFORMATION: Biliary duct dilatation and sepsis. COMPARISON: Previous CT of the abdomen and pelvis from earlier the same day TECHNIQUE: Real-time imaging of the gallbladder FINDINGS: LIVER: There is intrahepatic biliary duct dilatation seen. GALLBLADDER: The gallbladder is distended measuring 18 x 8 x 6 cm. There is echogenic bile in the gallbladder. No gallstones are appreciated. The gallbladder wall does not appear thickened or edematous. The radiographer technologist does not report that the patient is tender over the gallbladder. COMMON BILE DUCT: Dilated measuring 1.4 cm in diameter. There is a prominent lymph node in the periportal region/adjacent to the pancreatic head measuring 2.6 cm. FREE FLUID: None. US/US abdomen limited IMPRESSION: Dilated gallbladder. Dilated intra and extrahepatic bile ducts. No gallstones seen. Again further evaluation with MR of the abdomen with and without IV contrast and MRCP recommended to exclude ampullary lesion. Electronically signed by: Tracey Rudolph MD 09/14/2025 04:46 PM EDT
--- NOTE | ~2025-09-14 | CT_ITS ---
EXAMINATION: CT CHEST WITH CONTRAST CLINICAL INFORMATION: Fall, anterior chest ecchymosis. Septicemia. COMPARISON: None available. TECHNIQUE: Multidetector volumetric CT imaging of the chest was obtained after the administration of 85 mL of Omnipaque 350 intravenous contrast without immediate adverse reactions. Axial MIP volume rendering provided. Sagittal and coronal reformatted images were obtained. This CT examination was performed using dose optimization techniques as appropriate, variously including the following: *Automated exposure control *Adjustment of mA and/or kV according to patient size (this includes techniques or standardized protocols for targeted exams where dose is matched to indication/reason for exam; i.e. extremities or head) *Use of iterative reconstruction technique FINDINGS: LUNGS: There is an elevated right hemidiaphragm. There are groundglass changes in the right lower lobe with mild volume loss and discoid type atelectasis. Mild thickening of the right lower lobe segmental bronchi is present. Pneumonia is a consideration. There is minor atelectasis in the left base. Lungs otherwise clear. No interstitial abnormalities. There are a few scattered tiny calcified granulomata. There are no suspicious pulmonary nodules. There is no pleural or pericardial effusion. There is no pneumothorax. MEDIASTINUM: Normal thyroid. No lymphadenopathy, or mass. No hematoma. Aorta is mildly calcified but normal in caliber and course. Main pulmonary artery is mildly prominent which may indicate increased pulmonary pressures. Top normal cardiac size. Moderate coronary calcification present. No esophageal abnormality. Central airways are patent. PLEURA: There is no pleural effusion. No pleural mass or thickening. AXILLA/CHEST WALL: No lymphadenopathy. There is moderate to severe bilateral gynecomastia. UPPER ABDOMEN: Refer to the dedicated CT abdomen pelvis. OSSEOUS STRUCTURES: No suspicious lytic or blastic bone lesions are evident. No definite acute fractures are present. Severe degenerative spondylosis of the cervical spine and cervicothoracic junction. Moderate degenerative changes of the thoracic spine. No compression deformity. Bilateral shoulder arthroplasties. There are numerous healed right rib fractures. CT/CT chest w IV con IMPRESSION: 1. Groundglass changes with discoid type atelectasis, volume loss, and bronchial thickening in the right lower lobe. Pneumonia is a consideration in the appropriate clinical setting. 2. Lungs are otherwise grossly clear. There are no effusions. 3. There are no acute fractures identified. 4. There are ancillary findings as discussed in the body of the report. Electronically signed by: Alan Rosado MD 09/14/2025 03:23 PM EDT
--- NOTE | ~2025-09-14 | XR_ITS ---
EXAMINATION: XR CHEST 2 VIEWS HISTORY: follow up on pneumonia COMPARISON: Correlation is made with a chest CT dated 09/14/2025. FINDINGS: PA and lateral views of the chest are submitted. Again seen is patchy opacity in the right lower lobe consistent with atelectasis or pneumonia. The left lung is clear. There is no pleural effusion, pneumothorax, or pulmonary vascular congestion. The heart is normal in size. There is degenerative disc disease of the spine. Bilateral humeral arthroplasties are noted. XR/XR chest 2V IMPRESSION: Right lower lobe subsegmental atelectasis versus pneumonia. Electronically signed by: Ced Griffith MD 09/18/2025 12:18 PM EDT
--- NOTE | ~2025-09-14 | MR_ITS ---
CLINICAL HISTORY: elevated LFTs, dilated intra extrahepatic bile dul MRCP without gadolinium Comparison: None provided Findings: Common bile duct 1.6 cm. No cholelithiasis nor choledocholithiasis identified. Intrahepatic biliary duct dilatation. Dilatation of the main pancreatic duct, 0.5 cm. Tapering of the main pancreatic duct and common bile duct of the sphincter of ANGEL level, axial image number 30 of 40 series 6, coronal image number 19 of 32 series 3. The gallbladder is normal. The solid organs are within normal limits. Lumbar levoscoliosis. IMPRESSION: 1. Dilated common bile duct measuring 1.6 cm with intrahepatic biliary duct dilatation as well as concurrent main pancreatic duct dilatation with smooth tapering of the level of the sphincter of Oddi; sphincter of Oddi dysfunction suspected. 2. No cholelithiasis nor choledocholithiasis identified. This document has been electronically signed by: Humble Hanna MD on 09/14/2025 18:55:23
--- NOTE | ~2025-09-14 | CT_ITS ---
EXAMINATION: CT ABDOMEN AND PELVIS WITH CONTRAST CLINICAL INFORMATION: Upper abdominal injury, trauma. Septic . Fall. COMPARISON: None available. TECHNIQUE: Multidetector volumetric images were obtained from the superior aspect of the liver through the pubic symphysis following administration 85 mL of Omnipaque 350 intravenous contrast. Sagittal and coronal reformatted images were obtained on the technologist's workstation. Oral contrast: No This CT examination was performed using dose optimization techniques as appropriate, variously including the following: *Automated exposure control *Adjustment of mA and/or kV according to patient size (this includes techniques or standardized protocols for targeted exams where dose is matched to indication/reason for exam; i.e. extremities or head) *Use of iterative reconstruction technique DLP: 3116. FINDINGS: LUNG BASES: There is a focal right lower lobe density with trace air bronchograms suspicious for infiltrate and/or atelectasis. There is dependent bibasilar atelectasis in the posterior segments. The heart size is normal. Mild coronary artery calcifications. Suspect bilateral gynecomastia LIVER, GALLBLADDER, AND BILIARY TREE: The liver is normal in size, shape, and attenuation. There is no focal hepatic lesion seen. However there is intrahepatic ductal dilatation. The common bile duct is dilated extending all the way to the head of the pancreas and insertion into the duodenum. The proximal CBD measures 2.2 cm subtle CBD measures 1 cm. There appears to be small intraductal filling defect in the distal CBD question mass versus radiolucent stone. Best visualized on sagittal image 81/40 and coronal image 46/39. It measures approximately 16 mm.. The gallbladder is unremarkable with no evidence of radiopaque gallstones, gallbladder wall thickening, or obvious pericholecystic inflammatory changes. PANCREAS: There is mild dilatation of pancreatic duct and the proximal duct measuring 7 mm. The pancreas otherwise is homogeneous echotexture. There are vascular calcifications in the body and the tail of the pancreas. SPLEEN: Unremarkable. ADRENAL GLANDS: Unremarkable. KIDNEYS AND URETERS: Kidneys are normal size, lobulated. No radiopaque renal calculi seen. There are several hypodense nonenhancing 1 cm and less lesions in both kidneys likely simple cyst. BLADDER: Unremarkable. GASTROINTESTINAL TRACT: There is scattered stool, diverticula and gas seen throughout the without distention. The small bowel loops are normal caliber. Appendix is not visualized with certainty. The stomach is mildly distended with recently ingested food and fluids. No free fluid seen. ABDOMINAL WALL: A small lumbrical hernia containing fat is noted. LYMPH NODES: No abnormal size retroperitoneal lymph nodes or mass seen. VASCULAR: Mild atherosclerosis of distal abdominal aorta and common iliac arteries without aneurysmal dilatation. PELVIC VISCERA: The prostate gland is normal size. No abnormal pelvic lymph nodes. No evidence of inguinal hernia. OSSEOUS STRUCTURES: There is small is S-shaped scoliosis of dorsolumbar spine with degenerative disc changes virtually at every disc level no aggressive lytic or sclerotic process seen. CT/CT abdomen pelvis w IV con IMPRESSION: Intrahepatic, common bile and pancreatic duct dilatation with likely small lesion versus radiolucent stone in the distal CBD at its insertion to duodenum. MRCP MRI pancreas correlation is recommended. This can be performed as outpatient. Colonic diverticulosis without diverticulitis. No acute traumatic injury seen in the abdomen. No acute fracture or lytic process except for some sclerosis. Right lower lobe infiltrate/atelectasis. Fleischner guidelines were followed. Electronically signed by: Noel Dent MD 09/14/2025 03:38 PM EDT
--- NOTE | ~2025-09-14 | CT_ITS ---
EXAMINATION: CT HEAD WITHOUT CONTRAST CLINICAL INFORMATION: fall non focal COMPARISON: None available. TECHNIQUE: Contiguous axial imaging was performed from the skull base to vertex without intravenous administration of contrast. This CT examination was performed using dose optimization techniques as appropriate, variously including the following: *Automated exposure control *Adjustment of mA and/or kV according to patient size (this includes techniques or standardized protocols for targeted exams where dose is matched to indication/reason for exam; i.e. extremities or head) *Use of iterative reconstruction technique DLP: 798.68 mGy-cm FINDINGS: No acute fracture or bony calvarium. No acute intracranial hemorrhage mass effect midline shift hydrocephalus or herniation. Multifocal patchy deep periventricular white matter hypodensities involving centrum semiovale and [place] radiata. Roland-white matter differentiation is normal. Old lacunar infarcts basal ganglia. Posterior cranial fossa contents demonstrated no acute hemorrhage. Normal position of the cerebellar tonsils. Vascular calcifications in the V4 segments of the vertebral arteries and cavernous supracavernous segments both ICAs. No air-fluid levels in the paranasal sinuses. Tympanic cavities and mastoid air cells are aerated. No hematoma is in the intraconal or extraconal compartments of the orbits. Degenerative changes at the craniocervical junction periodontal C1 region.. CT/CT head/brain wo IV con IMPRESSION: No acute fracture, bony calvarium. No acute intracranial hemorrhage. White matter disease likely related to small vessel occlusive disease. Atherosclerosis disease, intracranial. Electronically signed by: Jose Sandoval MD 09/14/2025 03:17 PM EDT
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
[2025-09-14] MEDS: Lactated Ringers 1,000 ML 999 ML IVCONT (12:52)
[2025-09-14 13:09] LABS: Hematocrit 40.5 % (42.0-52.0); Hemoglobin 13.3 g/dl (14.0-18.0); Imm Gran Abs Auto 0.15 X10*3/uL (0.00-0.03); Imm Gran Pct Auto 0.9 % (0.0-0.4); Lymphocytes Absolute Auto 0.7 X10*3/uL (1.2-4.9); MANUAL DIFF FLAG SCAN; Mean Corpuscular HGB Conc 32.8 g/dl (31.0-36.0); Mean Corpuscular Hemoglobin 29.5 pg (27.0-33.0); Mean Corpuscular Volume 89.8 fL (80.0-98.0); NRBC Abs Auto 0.000 X10*3/uL (0.0-0.012); NRBC Pct Auto 0.0 /100WBC (0.0-0.2); Platelet Count 392 X10*3/uL (160-400); Red Blood Count 4.51 X10*6/uL (4.60-5.80); SCAN SMEAR FLAG 1; White Blood Count 16.1 X10*3/uL (4.8-10.8)
[2025-09-14 13:12] LABS: INTERNATIONAL NORM RATIO 1.2 (0.9-1.1); Prothrombin Time 13.8 SEC (10.9-12.4)
--- NOTE | 2025-09-14 13:14 | PC.NURSE ---
pt difficult blood draw. one sec of cultures and labs obtained, second set is difficult. abx started in between cultures in case unable to obtain before 30 minutes
[2025-09-14 13:15] LABS: Partial Thromboplastin Time 32.0 SEC (26.7-34.1)
[2025-09-14 13:40] LABS: Anion Gap 18 (12-20); Blood Urea Nitrogen 27 mg/dL (9-16); Calcium 10.0 mg/dL (8.4-10.2); Carbon Dioxide 15 mmol/L (22-29); Chloride 109 mmol/L (96-108); Creatinine Clr Calc Pharmacy 41.3; Estimated Glomerular Filt Rate 42; Potassium 4.6 mmol/L (3.3-5.1); Sodium 137 mmol/L (135-145)
[2025-09-14] MEDS: iohexoL 350 MG/ML 100 ML INFUS..BTL IV (14:21)
[2025-09-14] MEDS: Lactated Ringers 1,000 ML 999 ML IV (14:37)
[2025-09-14] MEDS: vancomycin/NS 2,000 MG/500 ML PLAST..BAG 250 MG IV (14:39)
[2025-09-14 15:25] LABS: Reflex Lactate? Lactic Acid Added
[2025-09-14 15:49] LABS: Resp Syncy Virus RNA Qual PCR NEGATIVE (Negative); SARS COV2 PCR INHOUSE NEGATIVE (Negative)
[2025-09-14 16:06] LABS: Alanine Aminotransferase 88 U/L (0-40); Albumin Level 3.9 g/dL (3.5-5.0); Alkaline Phosphatase 164 U/L (39-117); Aspartate Amino Transferase 112 U/L (5-37); Total Protein 7.4 g/dL (6.5-8.0)
--- NOTE | 2025-09-14 16:36 | PHA.MEDREC ---
Pharmacy Consult ? Medication Reconciliation Pharmacy has completed the medication reconciliation. Utilized pharmacy claims that are within range. [facility] phone number is unknown.
[2025-09-14 17:19] LABS: Venous Blood Gas Refer to POC result
[2025-09-14 17:20] LABS: VBG HCO3 21 mmol/L (22-26); VBG O2 % Saturation 99.0 %
[2025-09-14 17:27] LABS: Ammonia 26 umol/L (13-55)
[2025-09-14 17:35] LABS: ~Lactic Acid-LAB USE ONLY 1.1 mmol/L (0.5-2.0)
--- NOTE | 2025-09-14 17:51 | P.HPHOSP_ITS ---
History of Present Illness Date of Service: 09/14/25 Attending physician on admission: Sho Bruno Chief Complaint: fall, pneumonia This is a 74 year old male with a history of degenerative arthritis, HTN who was brought in after he was found wedged between his dresser in his bedroom. History was obtained from both patient and his brother at the bedside. Patient's brother last spoke to him on evening and he seemed to be ok. 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 His brother was called to come to his house and he was noted to be disoriented, so 911 was called. upon EMS arrival he was hypotensive with blood pressure in the 70 systolic however when he arrived to the emergency department his blood pressure was 101/62 with no intervention. He was noted to be hypoxic requiring 3 L nasal cannula. He was also noted to be febrile with a temperature of a 103.2 degrees. Lab work was significant for leukocytosis of 16,000, elevation of his LFTs, lactic acid of 2.7 which improved to 1.1 after fluids. Creatinine was also noted to be elevated at 1.64, no baseline for comparison. CT scan of the abdomen and pelvis shows intrahepatic, common bile and pancreatic duct dilation with likely small lesion versus radiolucent stone in the distal CBD. Chest CT with groundglass changes and bronchial thickeing in the RLL concerning for pneumonia. The patient's brother reports intermittent etoh use sometimes up to 7-8 beers daily, but he doesn't think the patient has been drinking in the past few weeks. The patient says he had one beer at some point but is unable to say when that last drink was, possibly yesterday. The patient has been coughing for the past two weeks, his brother was recently sick with an upper respiratory infection; there has been no complaints of shortness of breath. Patient denies abdominal pain, there is a history of fatty liver disease but no known history of cirrhosis. In the emergency department he was treated with IV fluids, IV antibiotics the decision was made to admit him to the hospital for further management. Review of Systems 2 Review of Systems: Yes all other systems are reviewed and are negative Constitutional: Constitutional: Reports fever(s) Cardiovascular: Cardiovascular: Denies chest pain Gastrointestinal: Gastrointestinal: Denies abdominal pain, Denies nausea and Denies vomiting [facility] Medical History Gout, arthritis HTN (hypertension) Degenerative arthritis Social History Smoked in Last 30 Days: No Use of substances other than those prescribed or required for medical reasons: No Advance Directives: No Advance Directives Information Provided: Yes Meds Allergies Allergy/AdvReac Type Severity Reaction Status Date / Time No Known Allergies Allergy Verified 09/14/25 12:45 Active Medications: Current Medications Acetaminophen (Acetaminophen 325 Mg Tablet) 650 mg PO Q6H PRN PRN Reason: Pain, Mild 1-3,fever,headache Calcium Carbonate (Calcium Carbonate 750 Mg Tab.Chew) 750 mg PO Q4H PRN PRN Reason: Heartburn Lactated Ringer's (Lr) 1,000 mls @ 100 mls/hr IVCONT .Q10H AMBAR Magnesium Hydroxide (Milk Of Magnesia 30 Ml Oral.Susp) 30 ml PO DAILY PRN PRN Reason: Constipation Melatonin (Melatonin 3 Mg Tablet) 6 mg PO BEDTIME PRN PRN Reason: Insomnia Ondansetron HCl (Ondansetron Hcl 4 Mg/2 Ml Vial) 4 mg IVPUSH Q8H PRN PRN Reason: Nausea and Vomiting Sodium Chloride (0.9 % Sodium Chloride Flush 3 Ml Syringe) 3 ml IVFLUSH QSHIFT [facility] Home Medications ?Medication ?Instructions ?Recorded ?Confirmed ?Last Taken ?Type albuterol sulfate 90 mcg/actuation 1 puff inhalation Q ID PRN Wheezing 09/20/24 09/14/25 Unknown History aerosol inhaler allopurinol 100 mg tablet 200 mg PO BID 09/20/2409/14 Unknown History atenolol 50 mg tablet 50 mg PO DAILY 09/20/2408/29 Unknown History bumetanide 1 mg tablet 1 mg PO BID 09/20/24 5 Unknown History ferrous sulfate 325 mg (65 mg 325 mg PO DAILY 09/20/24 09/14/25 Unknown History iron) tablet (FeroSul) gabapentin 300 mg capsule 300 mg PO TID 09/14/2509/14 Unknown History Physical Exam 2 Vital Signs and Narrative: Vital Signs: Last Vital Signs Temp 100.4 F 09/14/25 16:57 Pulse 70 09/14/25 16:57 Resp 16 09/14/25 16:57 BP 109/67 09/14/25 16:57 Pulse Ox 94 09/14/25 16:57 O2 Del Method Room Air 09/14/25 16:57 O2 Flow Rate 3 09/14/25 16:30 Oxygen Flow Rate 3 09/14/25 12:32 BMI result Body Mass Index 29.9 Const: Other: falling asleep between questions and frequency keeps eyes closed during evaluation but easily arousable and answering most questions correctly General: comfortable Nutritional Appearance: average body habitus O rientation/consciousness: oriented to person and oriented to place Resp: Effort & Inspection: normal respiratory effort, able to speak in complete sentences, no respiratory distress and no use of accessory muscles A uscultation: clear to auscultation bilaterally Cardio: Rate: regular rate GI: Inspection: No distended Palpation (GI): Soft to palpation and nontender Neuro: Other: sleepy, moving all 4 extremities, no obvious focal deficits noted General: oriented to person, oriented to place, moves all extremities and CN's II-XI intact bilaterally Extrem: Other: left hand deformity; right hand deformity/previous amputation General: No pedal edema Results Labs 09/14/25 13:01 09/14/25 13:20 Labs: Laboratory Results - last 24 hr 09/14/25 09/14/25 09/14/25 13:01 13:20 14:47 MCV 89.8 MCH 29.5 MCHC 32.8 RDW 14.4 Plt Count 392 MPV 10.2 Immature Gran % (Auto) 0.9 H Neut % (Auto) 83.9 H Lymph % (Auto) 4.5 L [place] % (Auto) 10.2 Eos % (Auto) 0.1 Baso % (Auto) 0.4 Lymph # (Auto) 0.7 L [place] # (Auto) 1.6 H Eos # (Auto) 0.0 Baso # (Auto) 0.1 Abs Immat Gran (auto) 0.15 H Absolute Neuts (auto) 13.5 H Absolute Nucleated RBC 0.000 Nucleated RBC % (auto) 0.0 Smear Tech's Comments VERIFIED PT 13.8 H INR 1.2 H APTT 32.0 VBG pH VBG pCO2 VBG pO2 VBG HCO3 VBG O2 Saturation VBG Base Excess Anion Gap 18 Estim Creat Clear Calc 41.3 Estimated GFR 42 Random Glucose 138 H Lactic Acid 2.7 H* Lactic Acid F/U @ 2Hr Calcium 10.0 Total Bilirubin 1.6 H Direct Bilirubin 0.9 H AST 112 H ALT 88 H Alkaline Phosphatase 164 H Ammonia Total Creatine Kinase 100 Total Protein 7.4 Albumin 3.9 Beta-Hydroxybutyrate 0.08 Ethyl Alcohol 11 Influenza Type A (PCR) NEGATIVE Influenza Type B (PCR) NEGATIVE RSV RNA Qual (PCR) NEGATIVE SARS-CoV-2 RNA (RT-PCR) NEGATIVE 09/14/25 09/14/25 17:12 17:16 MCV MCH MCHC RDW Plt Count MPV Immature Gran % (Auto) Neut % (Auto) Lymph % (Auto) [place] % (Auto) Eos % (Auto) Baso % (Auto) Lymph # (Auto) [place] # (Auto) Eos # (Auto) Baso # (Auto) Abs Immat Gran (auto) Absolute Neuts (auto) Absolute Nucleated RBC Nucleated RBC % (auto) Smear Tech's Comments PT INR APTT VBG pH 7.32 VBG pCO2 40 VBG pO2 158 VBG HCO3 21 L VBG O2 Saturation 99.0 VBG Base Excess -4.3 Anion Gap Estim Creat Clear Calc Estimated GFR Random Glucose Lactic Acid Lactic Acid F/U @ 2Hr 1.1 Calcium Total Bilirubin Direct Bilirubin AST ALT Alkaline Phosphatase Ammonia 26 Total Creatine Kinase Total Protein Albumin Beta-Hydroxybutyrate Ethyl Alcohol Influenza Type A (PCR) Influenza Type B (PCR) RSV RNA Qual (PCR) SARS-CoV-2 RNA (RT-PCR) Imaging Radiologist's Impressions: Impressions Abdomen/Pelvis CT 09/14/25 14:13 IMPRESSION: Intrahepatic, common bile and pancreatic duct dilatation with likely small lesion versus radiolucent stone in the distal CBD at its insertion to duodenum. MRCP MRI pancreas correlation is recommended. This can be performed as outpatient. Colonic diverticulosis without diverticulitis. No acute traumatic injury seen in the abdomen. No acute fracture or lytic process except for some sclerosis. Right lower lobe infiltrate/atelectasis. Fleischner guidelines were followed. Electronically signed by: Noel Dent MD 09/14/2025 03:38 PM EDT Cervical Spine CT 09/14/25 14:13 IMPRESSION: Multilevel cervical spondylosis and levoconvex scoliosis versus positioning without gross acute fracture or trauma-related listhesis. Fleischner guidelines were followed. Electronically signed by: Jose Sandoval MD 09/14/2025 03:23 PM EDT RP Chest CT 09/14/25 14:13 IMPRESSION: 1. Groundglass changes with discoid type atelectasis, volume loss, and bronchial thickening in the right lower lobe. Pneumonia is a consideration in the appropriate clinical setting. 2. Lungs are otherwise grossly clear. There are no effusions. 3. There are no acute fractures identified. 4. There are ancillary findings as discussed in the body of the report. Electronically signed by: Alan Rosado MD 09/14/2025 03:23 PM EDT RP Head CT 09/14/25 14:13 IMPRESSION: No acute fracture, bony calvarium. No acute intracranial hemorrhage. White matter disease likely related to small vessel occlusive disease. Atherosclerosis disease, intracranial. Electronically signed by: Jose Sandoval MD 09/14/2025 03:17 PM EDT RP Abdomen Ultrasound 09/14/25 16:03 IMPRESSION: Dilated gallbladder. Dilated intra and extrahepatic bile ducts. No gallstones seen. Again further evaluation with MR of the abdomen with and without IV contrast and MRCP recommended to exclude ampullary lesion. Electronically signed by: Tracey Rudolph MD 09/14/2025 04:46 PM EDT RP Assessment and Plan (1) Pneumonia: Status: Acute Plan This is a 74 year old male with history of degenerative arthritis, hypertension, gout, chronic pain no longer on chronic narcotics, alcohol use who presents to the emergency department after fall, unable to get up found to have pneumonia Acute respiratory failure with hypoxia and severe sepsis Due to pneumonia lactic acidosis resolved with IVF IV vancomycin and Zosyn Follow blood cultures check RPP Wean oxygen as tolerated TRINH likely due to above as well as decreased oral intake IVF follow BMP avoid nephrotoxic meds renally dose allopurinol Acute metabolic acidosis likely due to elevated lactic acid and renal failure pH 7.32, betahydroxybutarte negative follow BMP Elevated LFTs imaging with intrahepatic, CBD and pancreatic duct dilation with possible small lesion no abdominal pain on exam will get MRCP - depending on results may need GI consult trend LFTs Toxic metabolic encephalopathy likely due to above infection, TRINH, acidosis no focal neurological deficits/brain CT negative ammonia wnl, no co2 retention on VBG etoh use disorder unable to get accurate etoh consumption history pt unable to say when last drink was etoh added on to initial labs - level 11, likely much higher at the time of fall does not appear to be withdrawing from alcohol at this time, will follow on CIWA mag wnl monitor on tele empiric IV thiamine unwitnessed fall pt unable to provide history about fall as above etoh may have been contributing factor monitor on tele PT eval prior to discharge chronic pain no longer on opiates hold gabapentin due to confusion/TRINH, resume as indicated HTN Hold atenolol in the setting of sepsis resume as bp allows gouty arthritis renally dose allopurinol dvt ppx - heparin code status - full code patient will likely require two midnight stay in the hospital for management of Quality Stroke Does the patient have a stroke diagnosis?: No VTE Prior VTE?: No VTE Risk Level:: Medical - moderate - high VTE Device Contraindication: N/A - Device Ordered VTE Drug Contraindication: N/A - Med Ordered
[2025-09-14 18:02] LABS: Magnesium 2.2 mg/dL (1.6-2.6)
[2025-09-14] MEDS: Thiamine HCL 200 MG in 0.9 % Sodium Chloride 100 ML 204 MG IV (18:40)
[2025-09-14] MEDS: Lactated Ringers 1,000 ML 100 ML IVCONT (18:44)
--- NOTE | 2025-09-14 21:02 | PC.NURSE ---
Report received and care assumed at 1900. Pt found to be in his stretcher leaning over to the right side, awake, alert, conversing freely and able to answer questions and relay information about his care thus far. The pt reports feeling warm and was given an ice pack x2 for comfort and per his request. The pt has IVF and ABX fluids infusing. Pt with NC in place and without distress noted. He was attempting to use the urinal while in bed with limited success, education provided regarding the plan for araya catheter placement per provider request due to urinary retention as patient was previously reported to have a bladder scan of approx 700. Pt agreeable but states that he would prefer to attempt to stand at bedside and void using the urinal one last time before araya placement. EDT was then deployed into the room to assist with toileting needs, which he was once again not successful with, he asked to be left alone with lights dimmed and extra time despite being reminded of safety concerns and the importance of remaining in the bed unless having staff assistance. Pt previously noted to have pulled his IV line out. RN to bedside again at approx 2100, found the patient to be standing at bedside holding on to the bedside table for stability while attempting to void, there was approx 200mls in the urinal and the pt was requesting additional time (20 minutes specifically) and asked to be alone. This RN once again informed the patient of the importance of him remaining in his bed, not standing or being up without assistance and he refused. When the RN informed the pt of his potential to fall and safety concern he replied If i do fall I'll fall backwards onto my bed . Pt aware that RN needs to replace IV line as IVF and ABX have been paused for approx 30 minutes d/t dislodged/removed IV line. Pt will not allow this RN to replace IV at this time,
[2025-09-14 21:25] LABS: Appearance Urine Clear; Glucose Urine UA Negative (Negative); PH 5.5 (5.0-9.0); Specific Gravity - Urine >= 1.030 (1.005-1.025); UMIC TRIGGER UACC YES
--- NOTE | 2025-09-14 21:31 | PC.NURSE ---
pt's LR paused for the infusion of his Zoysyn, new IV line initiated to the right forearm
[2025-09-14 21:38] LABS: Cannabinoid Screen Urine Not Detected (Not Detect)
--- NOTE | 2025-09-14 21:45 | PC.NURSE ---
Hospitalist made aware of patient's post void residual reading of 232 s/p putting out approx 600mls of sharmaine colored urine
--- NOTE | 2025-09-14 23:28 | PC.NURSE ---
RN to bedside to medicate him per MAR with subcutaneous heparin. Hospitalist made aware of patient's bradycardia and hypotension with decreased MAP via tiger. Pt found to be sleeping with eyes closed, respirations even, unlabored, but slow (7-8/minute), difficult to arouse with verbal stimuli and soft physical touch to his arm. He required some firm physical stimuli to the chest (not sternal rub) in addition to verbal stimuli at which time he was noted to be awake, conversing freely, appropriate, and without distress noted. He denies dizziness, SOB, CP, and/or other concerning symptoms at this time. Maintenance fluids continue to infuse without s/s of complications noted to insertion site. Pt placed in trendelenburg at this time.
--- NOTE | 2025-09-14 23:48 | PC.NURSE ---
new orders obtained for the pt to receive a 500ml bolus of NS to help with pt's current hypotension
[2025-09-15] VITALS (10 sets, daily range): BP systolic 76–118; BP diastolic 56–67; PULSE 55–73; RESP 14–18; TEMP 35.8–37; O2SAT 95–99; BMI 31.1
--- NOTE | 2025-09-15 00:47 | PC.NURSE ---
Hospitalist made aware of pt's bps s/p 500ml bolus. pt remains at baseline with his mentation, awake, alert, oriented, and conversing without issue. He denied symptoms, new orders put in by hospitalist. While RN in with another patient the pt was noted to have a BP read of 118/67 and a rectal temp of 96.5. Hospitalist came down to the department and taking into consideration the pt's presentation and current bp she wanted this RN to hold off on hanging/administering additional fluids at this time. Blue regular adult cuff in place to the right upper arm
[2025-09-15 00:56] LABS: MANUAL DIFF FLAG NO
[2025-09-15 00:58] LABS: Venous Blood Gas Refer to POC result
[2025-09-15 01:00] LABS: Hematocrit 35.1 % (42.0-52.0); Hemoglobin 11.2 g/dl (14.0-18.0); Imm Gran Abs Auto 0.04 X10*3/uL (0.00-0.03); Imm Gran Pct Auto 0.3 % (0.0-0.4); Lymphocytes Absolute Auto 1.3 X10*3/uL (1.2-4.9); Mean Corpuscular HGB Conc 31.9 g/dl (31.0-36.0); Mean Corpuscular Hemoglobin 29.2 pg (27.0-33.0); Mean Corpuscular Volume 91.6 fL (80.0-98.0); NRBC Abs Auto 0.000 X10*3/uL (0.0-0.012); NRBC Pct Auto 0.0 /100WBC (0.0-0.2); Platelet Count 292 X10*3/uL (160-400); Red Blood Count 3.83 X10*6/uL (4.60-5.80); White Blood Count 11.5 X10*3/uL (4.8-10.8)
[2025-09-15 01:00] LABS: VBG HCO3 24 mmol/L (22-26); VBG O2 % Saturation 52.0 %
[2025-09-15 01:18] LABS: Troponin-I High Sensitivity 9.6 ng/L (<3.5-35.0)
[2025-09-15 01:28] LABS: Alanine Aminotransferase 69 U/L (0-40); Albumin Level 3.3 g/dL (3.5-5.0); Alkaline Phosphatase 143 U/L (39-117); Anion Gap 13 (12-20); Aspartate Amino Transferase 102 U/L (5-37); Blood Urea Nitrogen 29 mg/dL (9-16); Calcium 9.3 mg/dL (8.4-10.2); Carbon Dioxide 23 mmol/L (22-29); Chloride 109 mmol/L (96-108); Creatinine Clr Calc Pharmacy 50.2; Estimated Glomerular Filt Rate 52; Magnesium 2.2 mg/dL (1.6-2.6); Potassium 4.0 mmol/L (3.3-5.1); Sodium 141 mmol/L (135-145); Total Protein 6.3 g/dL (6.5-8.0)
[2025-09-15] MEDS: Thiamine HCL 200 MG in 0.9 % Sodium Chloride 100 ML 204 MG IV ×2 (05:01→17:54)
[2025-09-15] MEDS: Lactated Ringers 1,000 ML 100 ML IVCONT ×3 (05:05→23:49)
[2025-09-15 06:36] LABS: MANUAL DIFF FLAG NO
[2025-09-15 06:51] LABS: Hematocrit 34.2 % (42.0-52.0); Hemoglobin 11.0 g/dl (14.0-18.0); Imm Gran Abs Auto 0.04 X10*3/uL (0.00-0.03); Imm Gran Pct Auto 0.4 % (0.0-0.4); Lymphocytes Absolute Auto 1.2 X10*3/uL (1.2-4.9); Mean Corpuscular HGB Conc 32.2 g/dl (31.0-36.0); Mean Corpuscular Hemoglobin 29.6 pg (27.0-33.0); Mean Corpuscular Volume 92.2 fL (80.0-98.0); NRBC Abs Auto 0.000 X10*3/uL (0.0-0.012); NRBC Pct Auto 0.0 /100WBC (0.0-0.2); Platelet Count 289 X10*3/uL (160-400); Red Blood Count 3.71 X10*6/uL (4.60-5.80); White Blood Count 8.9 X10*3/uL (4.8-10.8)
[2025-09-15 07:01] LABS: Alanine Aminotransferase 64 U/L (0-40); Albumin Level 3.0 g/dL (3.5-5.0); Alkaline Phosphatase 139 U/L (39-117); Anion Gap 13 (12-20); Aspartate Amino Transferase 93 U/L (5-37); Blood Urea Nitrogen 28 mg/dL (9-16); Calcium 9.1 mg/dL (8.4-10.2); Carbon Dioxide 23 mmol/L (22-29); Chloride 110 mmol/L (96-108); Creatinine Clr Calc Pharmacy 59.0; Estimated Glomerular Filt Rate > 60; Potassium 3.5 mmol/L (3.3-5.1); Sodium 142 mmol/L (135-145); Total Protein 5.8 g/dL (6.5-8.0)
[2025-09-15] MEDS: Ferrous Sulfate 324 MG TABLET.DR PO (09:40)
[2025-09-15 10:20] LABS: Chlamydia pneumoniae PCR Not Detected (Not Detect.); Coronavirus 229E PCR Not Detected (Not Detect.); Coronavirus HKU1 PCR Not Detected (Not Detect.); Coronavirus NL63 PCR Not Detected (Not Detect.); Coronavirus OC43 PCR Not Detected (Not Detect.); RSV PCR Not Detected (Not Detect.); Rhino/Enterovirus PCR Not Detected (Not Detect.)
[2025-09-15 10:24] LABS: Influenza A H1 PCR Not Detected (Not Detect.); Influenza A H1-2009 PCR Not Detected (Not Detect.); Influenza A H3 PCR Not Detected (Not Detect.); SARS-CoV-2 PCR Not Detected (Not Detect.)
--- NOTE | 2025-09-15 11:14 | HO.SKINPHOTO ---
Location: Category: Stage: Length: Width: Depth: cm Location: Category: Stage: Length: Width: Depth: cm Location: Category: Stage: Length: Width: Depth: cm Location: Category: Stage: Length: Width: Depth: cm Location: Category: Stage: Length: Width: Depth: cm Location: Category: Stage: Length: Width: Depth: cm
[2025-09-15] MEDS: guaiFEN/Codeine SF 200/20/10ML 10 ML LIQUID PO (13:15)
--- NOTE | 2025-09-15 17:39 | HO.PM.IMPN ---
Subjective Subjective Date of Service: 09/15/25 Interval History: Feels much better today. Reports improvement in his respiratory status; braething easier, coughing improved and no phlegm production. Still has dry coughing however. No fevers chills or rigors. Has an appetite and eating as well. Review of Systems Review of Systems: Yes all other systems are reviewed and are negative Physical Exam Exam: Exam: General: Alert, in no acute distress. Well-nourished, well-developed. Vital Signs: Afebrile. Hemodynamically stable. Oxygen saturation 98% on 1L nasal cannula. HEENT: Normocephalic, atraumatic. Oropharynx clear. Mucous membranes moist. Neck: Supple, no lymphadenopathy, no jugular venous distension. Cardiovascular: Regular rate and rhythm. No murmurs, rubs, or gallops. Respiratory: Breath sounds with fine crepitations at both lung bases. No wheezes or rhonchi. No use of accessory muscles. No hypoxia on 1L nasal cannula. Abdomen: Soft, non-tender, non-distended. No hepatosplenomegaly. Bowel sounds normal. Extremities: Left hand with visible deformity and swelling consistent with gouty arthritis. Right hand with partial traumatic amputation. No clubbing, cyanosis, or edema in other extremities. Neurological: Alert and oriented. Cranial nerves II-XII grossly intact. Moves all extremities spontaneously. No focal deficits. Skin: Warm, dry, intact. No rashes or ulcers. Psychiatric: Normal mood and affect. Vital Signs: Vital Signs: Last Vital Signs Temp 98.6 F 09/15/25 15:58 Pulse 65 09/15/25 15:58 Resp 18 09/15/25 15:58 BP 104/57 L 09/15/25 15:58 Pulse Ox 99 09/15/25 15:58 O2 Del Method Nasal Cannula 09/15/25 15:58 O2 Flow Rate 2 09/15/25 15:58 Oxygen Flow Rate 3 09/14/25 12:32 BMI result Body Mass Index 31.1 Objective Data Active Medications Acetaminophen (Acetaminophen 325 Mg Tablet) 650 mg PO Q6H PRN PRN Reason: Pain, Mild 1-3,fever,headache Allopurinol (Allopurinol 100 Mg Tablet) 50 mg PO DAILY AMABR Last Admin: 09/15/25 09:40 Dose: 50 mg Documented By: NATHANAEL Calcium Carbonate (Calcium Carbonate 750 Mg Tab.Chew) 750 mg PO Q4H PRN PRN Reason: Heartburn Ferrous Sulfate (Ferrous Sulfate 324 Mg Tablet.) 324 mg PO DAILY [facility] Last Admin: 09/15/25 09:40 Dose: 324 mg Documented By: NATHANAEL Folic Acid (Folic Acid 1 Mg Tablet) 1 mg PO DAILY [facility] Last Admin: 09/15/25 09:40 Dose: 1 mg Documented By: NATHANAEL Guaifenesin/Codeine Phosphate (Guaifen/Codeine Sf 200/20/10ml 10 Ml Liquid) 10 ml PO Q6H PRN PRN Reason: Cough Last Admin: 09/15/25 13:15 Dose: 10 ml Documented By: NATHANAEL Heparin Sodium (Porcine) (Heparin Sodium,Porcine 5,000 Unit/Ml Vial) 5,000 unit SUBCUT Q12H [facility] Last Admin: 09/15/25 05:44 Dose: 5,000 unit Documented By: CELIA Lactated Ringer's (Lr) 1,000 mls @ 100 mls/hr IVCONT .Q10H [facility] Last Admin: 09/15/25 13:56 Dose: 100 mls/hr Documented By: NATHANAEL Thiamine HCl 200 mg/ Sodium (Chloride) 102 mls @ 204 mls/hr IV Q12H [facility] Last Infusion: 09/15/25 05:46 Dose: Infused Documented By: CELIA Piperacillin Sod/Tazobactam (Sod 4.5 gm/ Sodium Chloride) 100 mls @ 200 mls/hr IV Q8H [facility] Last Infusion: 09/15/25 10:09 Dose: Infused Documented By: NATHANAEL Vancomycin HCl 1,250 mg/ (Sodium Chloride) 250 mls @ 166.667 mls/hr IV Q24H [facility] Last Infusion: 09/15/25 14:47 Dose: Infused Documented By: NATHANAEL Magnesium Hydroxide (Milk Of Magnesia 30 Ml Oral.Susp) 30 ml PO DAILY PRN PRN Reason: Constipation Melatonin (Melatonin 3 Mg Tablet) 6 mg PO BEDTIME PRN PRN Reason: Insomnia Ondansetron HCl (Ondansetron Hcl 4 Mg/2 Ml Vial) 4 mg IVPUSH Q8H PRN PRN Reason: Nausea and Vomiting Pharmacy Consult (Consult Rx Vancomycin Dosing) 1 each MISCELLANE DAILY PRN PRN Reason: Consult order Sodium Chloride (0.9 % Sodium Chloride Flush 3 Ml Syringe) 3 ml IVFLUSH QSHIFT [facility] Last Admin: 09/15/25 09:46 Dose: Not Given Documented By: NATHANAEL Non-Admin Reason: IV Running Labs 09/15/25 05:53 09/15/25 05:53 Labs: Laboratory Results - last 24 hr 09/14/25 09/14/25 09/14/25 13:01 17:31 21:17 MCV MCH MCHC RDW Plt Count MPV Immature Gran % (Auto) Neut % (Auto) Lymph % (Auto) [place] % (Auto) Eos % (Auto) Baso % (Auto) Lymph # (Auto) [place] # (Auto) Eos # (Auto) Baso # (Auto) Abs Immat Gran (auto) Absolute Neuts (auto) Absolute Nucleated RBC Nucleated RBC % (auto) VBG pH VBG pCO2 VBG pO2 VBG HCO3 VBG O2 Saturation VBG Base Excess Anion Gap Estim Creat Clear Calc Estimated GFR Random Glucose Lactic Acid Calcium Phosphorus Magnesium 2.2 Total Bilirubin Direct Bilirubin AST ALT Alkaline Phosphatase Troponin I High Sens Total Protein Albumin Urine Color Dark Yellow Urine Appearance Clear Urine pH 5.5 Ur Specific [place] >= 1.030 H Urine Protein 30 (1+) H Urine Glucose (UA) Negative Urine Ketones Trace Urine Blood Negative Urine Nitrite Negative Ur Leukocyte Esterase Trace H Urine RBC 0-2 Urine WBC 0-5 Ur Squamous Epith Cells 3-5 Urine Bacteria None Seen Hyaline Casts 3-5 Urine Opiates Screen POSITIVE H Ur Buprenorphine Scrn Not Detected Ur Oxycodone Screen Positive H Urine Methadone Screen Not Detected Urine Fentanyl Screen Not Detected Ur Barbiturates Screen Not Detected Ur Phencyclidine Scrn Not Detected Ur Amphetamines Screen Not Detected U Benzodiazepines Scrn Not Detected Urine Cocaine Screen Not Detected U Marijuana (THC) Screen Not Detected Respiratory Panel [place] See Note Adenovirus (Rapid PCR) Not Detected B.pert (TEM-PCR) Not Detected B.parapertussis DNA PCR Not Detected C. pneumoniae DNA (PCR) Not Detected Coronavirus OC43 (PCR) Not Detected Coronavirus HKU1 (PCR) Not Detected Coronavirus 229E (PCR) Not Detected Coronavirus NL63 (PCR) Not Detected Human Metapneumovir PCR Not Detected Influenza A (RT-PCR) Not Detected Influenza A (H1) PCR Not Detected Influ A (H1/09) PCR Not Detected Influenza A (H3) PCR Not Detected Influenza B (RT-PCR) Not Detected M. pneumoniae (PCR) Not Detected Parainfluenza 1 (PCR) Not Detected Parainfluenza 2 (PCR) Not Detected Parainfluenza 3 (PCR) Not Detected Parainfluenza 4 (PCR) Not Detected RSV (PCR) Not Detected Entero/Rhino (PCR) Not Detected SARS-CoV-2 RNA (RT-PCR) Not Detected 09/15/25 09/15/25 09/15/25 00:50 00:57 05:53 MCV 91.6 92.2 MCH 29.2 29.6 MCHC 31.9 32.2 RDW 14.4 14.5 Plt Count 292 D 289 MPV 10.0 10.4 Immature Gran % (Auto) 0.3 0.4 Neut % (Auto) 77.0 H 74.0 H Lymph % (Auto) 11.5 L 13.6 L [place] % (Auto) 10.8 10.9 Eos % (Auto) 0.1 0.7 Baso % (Auto) 0.3 0.4 Lymph # (Auto) 1.3 1.2 [place] # (Auto) 1.2 1.0 Eos # (Auto) 0.0 0.1 Baso # (Auto) 0.0 0.0 Abs Immat Gran (auto) 0.04 H 0.04 H Absolute Neuts (auto) 8.8 H 6.6 Absolute Nucleated RBC 0.000 0.000 Nucleated RBC % (auto) 0.0 0.0 VBG pH 7.29 L VBG pCO2 49 VBG pO2 44 VBG HCO3 24 VBG O2 Saturation 52.0 VBG Base Excess -2.4 Anion Gap 13 13 Estim Creat Clear Calc 50.2 59.0 Estimated GFR 52 > 60 Random Glucose 116 H 103 Lactic Acid 0.9 Calcium 9.3 D 9.1 Phosphorus 4.1 Magnesium 2.2 Total Bilirubin 1.2 H 0.9 Direct Bilirubin 0.7 H AST 102 H 93 H ALT 69 H 64 H Alkaline Phosphatase 143 H 139 H Troponin I High Sens 9.6 Total Protein 6.3 L 5.8 L Albumin 3.3 L 3.0 L Urine Color Urine Appearance Urine pH Ur Specific [place] Urine Protein Urine Glucose (UA) Urine Ketones Urine Blood Urine Nitrite Ur Leukocyte Esterase Urine RBC Urine WBC Ur Squamous Epith Cells Urine Bacteria Hyaline Casts Urine Opiates Screen Ur Buprenorphine Scrn Ur Oxycodone Screen Urine Methadone Screen Urine Fentanyl Screen Ur Barbiturates Screen Ur Phencyclidine Scrn Ur Amphetamines Screen U Benzodiazepines Scrn Urine Cocaine Screen U Marijuana (THC) Screen Respiratory Panel [place] Adenovirus (Rapid PCR) B.pert (TEM-PCR) B.parapertussis DNA PCR C. pneumoniae DNA (PCR) Coronavirus OC43 (PCR) Coronavirus HKU1 (PCR) Coronavirus 229E (PCR) Coronavirus NL63 (PCR) Human Metapneumovir PCR Influenza A (RT-PCR) Influenza A (H1) PCR Influ A (H1/09) PCR Influenza A (H3) PCR Influenza B (RT-PCR) M. pneumoniae (PCR) Parainfluenza 1 (PCR) Parainfluenza 2 (PCR) Parainfluenza 3 (PCR) Parainfluenza 4 (PCR) RSV (PCR) Entero/Rhino (PCR) SARS-CoV-2 RNA (RT-PCR) Microbiology Microbiology Results: Microbiology 09/14/25 13:20 Blood Culture - Preliminary Blood - Venous No growth after 24 hours. 09/14/25 13:01 Blood Culture - Preliminary Blood - Venous No growth after 24 hours. Assessment and Plan (1) Pneumonia: Status: Acute (2) Sepsis: Status: Acute (3) Chronic pain syndrome: Status: Acute (4) Encephalopathy acute: Status: Acute (5) Metabolic encephalopathy: Status: Acute (6) Toxic encephalopathy: Status: Acute (7) ETOH abuse: Status: Acute (8) Narcotic abuse: Status: Acute (9) TRINH (acute kidney injury): Status: Acute (10) Metabolic acidosis: Status: Acute (11) Alcoholic hepatitis: Status: Acute (12) Acute hypoxemic respiratory failure: Status: Acute Plan 74-year-old male with hypertension, gout, chronic pain, and alcohol use disorder presenting after an unwitnessed fall, found to have severe sepsis due to right lower lobe pneumonia, acute hypoxic respiratory failure, TRINH, transaminitis with biliary ductal dilation, toxic-metabolic encephalopathy, and unexpected opioid positivity on urine toxicology. Pneumonia with Acute Hypoxic Respiratory Failure and Severe Sepsis Right lower lobe pneumonia (CT: groundglass changes, bronchial thickening) Meets SIRS/sepsis criteria: Temperature: 103.2?F WBC: 16,000/mm? Lactic acid: 2.7 mmol/L (improved to 1.1 after fluids) Hypotension on EMS arrival (SBP in 70s), improved to 101/62 in ED Hypoxemia: O2 sat 94% on 3L NC Plan: Continue IV vancomycin and piperacillin-tazobactam Monitor blood cultures Respiratory pathogen panel pending Wean oxygen as tolerated Monitor for clinical improvement Continue supportive care for sepsis (IV fluids, monitor for end-organ dysfunction) Monitor vital signs and labs for resolution of SIRS/sepsis parameters Acute Kidney Injury (TRINH) Likely multifactorial: sepsis, hypoperfusion, decreased oral intake Creatinine 1.64 (no baseline), eGFR 42 Plan: Continue IV fluids Monitor renal function (BMP) Avoid nephrotoxic medications Renally dose allopurinol Acute Metabolic Acidosis - RESOLVED Likely secondary to lactic acidosis and TRINH VBG: pH 7.32, HCO3 21, lactic acid improved with fluids Plan: Monitor BMP and VBG Address underlying causes (sepsis, hypoperfusion) Alcoholic hepatitis Elevated LFTs Biliary Ductal Dilation Imaging: intrahepatic, common bile, and pancreatic duct dilation; possible distal CBD lesion vs. stone No abdominal pain, no evidence of acute cholangitis EtOH abuse noted Plan: MRCP ordered for further evaluation Trend LFTs GI consult pending MRCP results Toxic-Metabolic Encephalopathy Likely multifactorial: infection, TRINH, metabolic derangements, and possible substance effect, sepsis No focal deficits, CT head negative, ammonia normal Plan: Supportive care Hold gabapentin due to confusion/TRINH Monitor mental status Opioid Use/Exposure Urine toxicology positive for opioids; patient not on prescribed opioids Unclear source?possible unreported use or exposure Plan: Monitor for signs of opioid toxicity or withdrawal Reassess medication reconciliation and clarify history with patient/family Avoid further opioid administration unless clinically indicated Alcohol Use Disorder Unclear last use, recent level 11, no current withdrawal symptoms Plan: Monitor for withdrawal (CIWA protocol) Empiric IV thiamine Monitor electrolytes (magnesium, etc.) Telemetry monitoring Unwitnessed Fall Likely multifactorial: possible alcohol, infection, metabolic derangements, and possible opioid effect No acute traumatic injury on imaging Plan: Telemetry monitoring Physical therapy evaluation prior to discharge Chronic Pain Narcotic abuse - opioids No longer on opioids per history, but positive opioid on Utox Gabapentin held due to TRINH/confusion Plan: Resume as indicated when mental status and renal function improve Reassess pain management plan in light of Utox findings Hypertension Hold atenolol in setting of sepsis/hypotension Plan: Resume antihypertensives as BP allows Gouty Arthritis Plan: Renally dose allopurinol DVT: Heparin 5000 TID SQ CODE: FULL CODE Total time managing care of this patient today: 35 minutes. Quality Stroke Does the patient have a stroke diagnosis?: No VTE Prior VTE?: No VTE Risk Level:: Medical - moderate - high VTE Device Contraindication: N/A - Device Ordered VTE Drug Contraindication: N/A - Med Ordered
[2025-09-16] VITALS (7 sets, daily range): BP systolic 123–151; BP diastolic 60–79; PULSE 55–69; RESP 16–18; TEMP 36.2–36.8; O2SAT 94–99
[2025-09-16] MEDS: Thiamine HCL 200 MG in 0.9 % Sodium Chloride 100 ML 204 MG IV ×2 (05:02→17:57)
[2025-09-16] MEDS: Ferrous Sulfate 324 MG TABLET.DR PO (07:44)
[2025-09-16] MEDS: Lactated Ringers 1,000 ML 100 ML IVCONT (07:45)
[2025-09-16] MEDS: guaiFEN/Codeine SF 200/20/10ML 10 ML LIQUID PO (07:50)
[2025-09-16 08:31] LABS: Creatinine Clr Calc Pharmacy 88.6; Estimated Glomerular Filt Rate > 60
--- NOTE | 2025-09-16 11:39 | MHC.CM.PN ---
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 HE SAYS HE HAS [facility] SERVICES, HOWEVER BELIEVES THEY ARE SUPPOSED TO END SOON HE REPORTS HE ALSO HAS A LOT OF SUPPORT FROM FAMILY HE USES [employer] WITH A [facility] [employer] FOR MOBILITY PCP: PADMA HEADLEY COPY OF HCP REQUESTED IMM DELIVERED 09/15/25 PT FEELS HE MAY NEED REHAB, HE HAS BEEN TO [place] IN THE PAST AND IT WOULD BE PREFERRED IF HE IS ABLE TO DC HOME, HE SAYS HIS [facility] SERVICES ARE ABOUT TO END, SO HE WILL NEED NEW ORDERS FAMILY CAN TRANSPORT IF PT IS CLEARED FOR HOME
--- NOTE | 2025-09-16 12:55 | HE.PHANOTE ---
RE: VANCO DOSING Trough came back as 10.1 mg/L, renal function has improved. Dose increased to 1000 mg q12h. Next trough is scheduled for 09/17/25 @1200.
[2025-09-16] MEDS: 0.9 % Sodium Chloride Flush 3 ML SYRINGE IVFLUSH (16:38)
--- NOTE | 2025-09-16 17:02 | P.PNIM_ITS ---
Subjective Subjective Date of Service: 09/16/25 Interval History: No new issues or complaints today. Respiratory status has improved. No fevers chills or rigors. No coughing or phlegm production Review of Systems Review of Systems: Yes all other systems are reviewed and are negative Physical Exam 2 Exam: Exam: General: Alert, in no acute distress. Well-nourished, well-developed. Vital Signs: Afebrile. Hemodynamically stable. Oxygen saturation 98% on 1L nasal cannula. HEENT: Normocephalic, atraumatic. Oropharynx clear. Mucous membranes moist. Neck: Supple, no lymphadenopathy, no jugular venous distension. Cardiovascular: Regular rate and rhythm. No murmurs, rubs, or gallops. Respiratory: Breath sounds with fine crepitations at both lung bases. No wheezes or rhonchi. No use of accessory muscles. No hypoxia on 1L nasal cannula. Abdomen: Soft, non-tender, non-distended. No hepatosplenomegaly. Bowel sounds normal. Extremities: Left hand with visible deformity and swelling consistent with gouty arthritis. Right hand with partial traumatic amputation. No clubbing, cyanosis, or edema in other extremities. Neurological: Alert and oriented. Cranial nerves II-XII grossly intact. Moves all extremities spontaneously. No focal deficits. Skin: Warm, dry, intact. No rashes or ulcers. Psychiatric: Normal mood and affect. Vital Signs: Vital Signs: Last Vital Signs Temp 98.0 F 09/16/25 15:15 Pulse 59 09/16/25 15:15 Resp 17 09/16/25 15:15 BP 151/64 H 09/16/25 15:15 Pulse Ox 94 09/16/25 15:15 O2 Del Method Nasal Cannula 09/16/25 15:15 O2 Flow Rate 2 09/16/25 15:15 Oxygen Flow Rate 3 09/14/25 12:32 BMI result Body Mass Index 31.1 Objective Data Active Medications Acetaminophen (Acetaminophen 325 Mg Tablet) 650 mg PO Q6H PRN PRN Reason: Pain, Mild 1-3,fever,headache Last Admin: 09/16/25 07:50 Dose: 650 mg Documented By: NATHANAEL Allopurinol (Allopurinol 100 Mg Tablet) 200 mg PO BID [facility] Calcium Carbonate (Calcium Carbonate 750 Mg Tab.Chew) 750 mg PO Q4H PRN PRN Reason: Heartburn Ferrous Sulfate (Ferrous Sulfate 324 Mg Tablet.) 324 mg PO DAILY [facility] Last Admin: 09/16/25 07:44 Dose: 324 mg Documented By: NATHANAEL Folic Acid (Folic Acid 1 Mg Tablet) 1 mg PO DAILY [facility] Last Admin: 09/16/25 07:44 Dose: 1 mg Documented By: NATHANAEL Gabapentin (Gabapentin 300 Mg Capsule) 300 mg PO TID [facility] Last Admin: 09/16/25 16:38 Dose: 300 mg Documented By: SHERRY Guaifenesin/Codeine Phosphate (Guaifen/Codeine Sf 200/20/10ml 10 Ml Liquid) 10 ml PO Q6H PRN PRN Reason: Cough Last Admin: 09/16/25 07:50 Dose: 10 ml Documented By: NATHANAEL Heparin Sodium (Porcine) (Heparin Sodium,Porcine 5,000 Unit/Ml Vial) 5,000 unit SUBCUT Q12H [facility] Last Admin: 09/16/25 05:45 Dose: 5,000 unit Documented By: CELIA Lactated Ringer's (Lr) 1,000 mls @ 100 mls/hr IVCONT .Q10H [facility] Last Admin: 09/16/25 07:45 Dose: 100 mls/hr Documented By: NATHANAEL Thiamine HCl 200 mg/ Sodium (Chloride) 102 mls @ 204 mls/hr IV Q12H [facility] Last Infusion: 09/16/25 05:36 Dose: Infused Documented By: CELIA Piperacillin Sod/Tazobactam (Sod 4.5 gm/ Sodium Chloride) 100 mls @ 200 mls/hr IV Q6H [facility] Last Admin: 09/16/25 16:38 Dose: 200 mls/hr Documented By: SHERRY Vancomycin HCl 1,000 mg/ (Sodium Chloride) 270 mls @ 270 mls/hr IV Q12H [facility] Last Infusion: 09/16/25 15:28 Dose: Infused Documented By: SHERRY Magnesium Hydroxide (Milk Of Magnesia 30 Ml Oral.Susp) 30 ml PO DAILY PRN PRN Reason: Constipation Melatonin (Melatonin 3 Mg Tablet) 6 mg PO BEDTIME PRN PRN Reason: Insomnia Ondansetron HCl (Ondansetron Hcl 4 Mg/2 Ml Vial) 4 mg IVPUSH Q8H PRN PRN Reason: Nausea and Vomiting Pharmacy Consult (Consult Rx Vancomycin Dosing) 1 each MISCELLANE DAILY PRN PRN Reason: Consult order Sodium Chloride (0.9 % Sodium Chloride Flush 3 Ml Syringe) 3 ml IVFLUSH QSHIFT [facility] Last Admin: 09/16/25 16:38 Dose: 3 ml Documented By: SHERRY Labs 09/15/25 05:53 09/16/25 07:53 Labs: Laboratory Results - last 24 hr 09/16/25 09/16/25 07:53 12:07 Hold Purple Top SEE NOTE Estim Creat Clear Calc 88.6 Estimated GFR > 60 Random Vancomycin 10.1 L Microbiology Microbiology Results: Microbiology 09/14/25 13:20 Blood Culture - Preliminary Blood - Venous No growth after 48 hours. 09/14/25 13:01 Blood Culture - Preliminary Blood - Venous No growth after 48 hours. Assessment and Plan (1) ETOH abuse: Status: Acute (2) Narcotic abuse: Status: Acute (3) Alcoholic hepatitis: Status: Acute (4) TRINH (acute kidney injury): Status: Acute (5) Metabolic acidosis: Status: Acute (6) Sepsis: Status: Acute (7) Encephalopathy acute: Status: Acute (8) Metabolic encephalopathy: Status: Acute (9) Toxic encephalopathy: Status: Acute (10) Spondylosis of lumbar region without myelopathy or radiculopathy: Status: Acute (11) Chronic pain syndrome: Status: Acute (12) Pneumonia: Status: Acute (13) Acute hypoxemic respiratory failure: Status: Acute Plan 74-year-old male with hypertension, gout, chronic pain, and alcohol use disorder presenting after an unwitnessed fall, found to have severe sepsis due to right lower lobe pneumonia, acute hypoxic respiratory failure, TRINH, transaminitis with biliary ductal dilation, toxic-metabolic encephalopathy, and unexpected opioid positivity on urine toxicology. Pneumonia with Acute Hypoxic Respiratory Failure and Severe Sepsis Right lower lobe pneumonia (CT: groundglass changes, bronchial thickening) Meets SIRS/sepsis criteria: Temperature: 103.2?F WBC: 16,000/mm? Lactic acid: 2.7 mmol/L (improved to 1.1 after fluids) Hypotension on EMS arrival (SBP in 70s), improved to 101/62 in ED Hypoxemia: O2 sat 94% on 3L NC Plan: Continue IV vancomycin and piperacillin-tazobactam Monitor blood cultures Respiratory pathogen panel pending Wean oxygen as tolerated Monitor for clinical improvement Continue supportive care for sepsis (IV fluids, monitor for end-organ dysfunction) Monitor vital signs and labs for resolution of SIRS/sepsis parameters Acute Kidney Injury (TRINH) Likely multifactorial: sepsis, hypoperfusion, decreased oral intake Creatinine 1.64 (no baseline), eGFR 42 Plan: Continue IV fluids Monitor renal function (BMP) Avoid nephrotoxic medications Resume allopurinol 200mg BID PO Acute Metabolic Acidosis - RESOLVED Likely secondary to lactic acidosis and TRINH VBG: pH 7.32, HCO3 21, lactic acid improved with fluids Plan: Monitor BMP and VBG Address underlying causes (sepsis, hypoperfusion) Alcoholic hepatitis Elevated LFTs Biliary Ductal Dilation Imaging: intrahepatic, common bile, and pancreatic duct dilation; possible distal CBD lesion vs. stone No abdominal pain, no evidence of acute cholangitis EtOH abuse noted Plan: MRCP ordered for further evaluation Trend LFTs GI consult pending MRCP results Toxic-Metabolic Encephalopathy Likely multifactorial: infection, TRINH, metabolic derangements, and possible substance effect, sepsis No focal deficits, CT head negative, ammonia normal Plan: Supportive care Hold gabapentin due to confusion/TRINH Monitor mental status Opioid Use/Exposure Urine toxicology positive for opioids; patient not on prescribed opioids Unclear source?possible unreported use or exposure Plan: Monitor for signs of opioid toxicity or withdrawal Reassess medication reconciliation and clarify history with patient/family Avoid further opioid administration unless clinically indicated Alcohol Use Disorder Unclear last use, recent level 11, no current withdrawal symptoms Plan: Monitor for withdrawal (CIWA protocol) Empiric IV thiamine Monitor electrolytes (magnesium, etc.) Telemetry monitoring Unwitnessed Fall Likely multifactorial: possible alcohol, infection, metabolic derangements, and possible opioid effect No acute traumatic injury on imaging Plan: Telemetry monitoring Physical therapy evaluation prior to discharge Chronic Pain Narcotic abuse - opioids No longer on opioids per history, but positive opioid on Utox Gabapentin resumed after resolution of TRINH Plan: Resume gabapentin 300mg TID PO Reassess pain management plan in light of Utox findings Hypertension Hold atenolol in setting of sepsis/hypotension Plan: Resume antihypertensives as BP allows Gouty Arthritis Plan: Renally dose allopurinol DVT: Heparin 5000 TID SQ CODE: FULL CODE Quality Stroke Does the patient have a stroke diagnosis?: No VTE Prior VTE?: No VTE Risk Level:: Medical - moderate - high VTE Device Contraindication: N/A - Device Ordered VTE Drug Contraindication: N/A - Med Ordered
[2025-09-17] VITALS (7 sets, daily range): BP systolic 139–180; BP diastolic 68–83; PULSE 60–68; RESP 18; TEMP 36–37; O2SAT 93–100
[2025-09-17] MEDS: Thiamine HCL 200 MG in 0.9 % Sodium Chloride 100 ML 204 MG IV ×2 (05:33→18:05)
[2025-09-17 06:11] LABS: Creatinine Clr Calc Pharmacy 97.3; Estimated Glomerular Filt Rate > 60
[2025-09-17] MEDS: Ferrous Sulfate 324 MG TABLET.DR PO (09:21)
[2025-09-17] MEDS: 0.9 % Sodium Chloride Flush 3 ML SYRINGE IVFLUSH ×3 (09:26→23:02)
--- NOTE | 2025-09-17 14:44 | MHC.CM.PN ---
PT rec home w/ services. Discussed with patient who is in agreement and would like to resume services w/ [facility]. Per MD, potential dc today. Patient requesting BLS transport. CM will continue to follow.
[2025-09-17 16:53] LABS: Anion Gap 13 (12-20); Blood Urea Nitrogen 13 mg/dL (9-16); Calcium 8.9 mg/dL (8.4-10.2); Carbon Dioxide 22 mmol/L (22-29); Chloride 112 mmol/L (96-108); Potassium 3.8 mmol/L (3.3-5.1); Sodium 143 mmol/L (135-145)
--- NOTE | 2025-09-17 17:42 | HO.PM.IMPN ---
Subjective Subjective Date of Service: 09/17/25 Interval History: Feels better, but persistent congestion Review of Systems Review of Systems: Yes all other systems are reviewed and are negative Physical Exam Exam: Exam: General: Alert, in no acute distress. Well-nourished, well-developed. Vital Signs: Afebrile. Hemodynamically stable. Oxygen saturation 98% on 1L nasal cannula. HEENT: Normocephalic, atraumatic. Oropharynx clear. Mucous membranes moist. Neck: Supple, no lymphadenopathy, no jugular venous distension. Cardiovascular: Regular rate and rhythm. No murmurs, rubs, or gallops. Respiratory: Breath sounds with fine crepitations at both lung bases. No wheezes or rhonchi. No use of accessory muscles. No hypoxia on 1L nasal cannula. Abdomen: Soft, non-tender, non-distended. No hepatosplenomegaly. Bowel sounds normal. Extremities: Left hand with visible deformity and swelling consistent with gouty arthritis. Right hand with partial traumatic amputation. No clubbing, cyanosis, or edema in other extremities. Neurological: Alert and oriented. Cranial nerves II-XII grossly intact. Moves all extremities spontaneously. No focal deficits. Skin: Warm, dry, intact. No rashes or ulcers. Psychiatric: Normal mood and affect. Vital Signs: Vital Signs: Last Vital Signs Temp 97.4 F 09/17/25 15:48 Pulse 67 09/17/25 15:48 Resp 18 09/17/25 15:48 BP 164/80 H 09/17/25 15:48 Pulse Ox 97 09/17/25 15:48 O2 Del Method Nasal Cannula 09/17/25 15:48 O2 Flow Rate 2 09/17/25 15:48 Oxygen Flow Rate 3 09/14/25 12:32 BMI result Body Mass Index 31.1 Objective Data Active Medications Acetaminophen (Acetaminophen 325 Mg Tablet) 650 mg PO Q6H PRN PRN Reason: Pain, Mild 1-3,fever,headache Last Admin: 09/16/25 07:50 Dose: 650 mg Documented By: NATHANAEL Allopurinol (Allopurinol 100 Mg Tablet) 200 mg PO BID [facility] Last Admin: 09/17/25 09:21 Dose: 200 mg Documented By: YOUNG Calcium Carbonate (Calcium Carbonate 750 Mg Tab.Chew) 750 mg PO Q4H PRN PRN Reason: Heartburn Ferrous Sulfate (Ferrous Sulfate 324 Mg Tablet.) 324 mg PO DAILY [facility] Last Admin: 09/17/25 09:21 Dose: 324 mg Documented By: YOUNG Folic Acid (Folic Acid 1 Mg Tablet) 1 mg PO DAILY [facility] Last Admin: 09/17/25 09:21 Dose: 1 mg Documented By: YOUNG Gabapentin (Gabapentin 300 Mg Capsule) 300 mg PO TID [facility] Last Admin: 09/17/25 14:13 Dose: 300 mg Documented By: YOUNG Guaifenesin/Codeine Phosphate (Guaifen/Codeine Sf 200/20/10ml 10 Ml Liquid) 10 ml PO Q6H PRN PRN Reason: Cough Last Admin: 09/16/25 07:50 Dose: 10 ml Documented By: NATHANAEL Heparin Sodium (Porcine) (Heparin Sodium,Porcine 5,000 Unit/Ml Vial) 5,000 unit SUBCUT Q12H [facility] Last Admin: 09/17/25 05:38 Dose: 5,000 unit Documented By: DIANA Thiamine HCl 200 mg/ Sodium (Chloride) 102 mls @ 204 mls/hr IV Q12H [facility] Last Infusion: 09/17/25 06:05 Dose: Infused Documented By: DIANA Piperacillin Sod/Tazobactam (Sod 4.5 gm/ Sodium Chloride) 100 mls @ 200 mls/hr IV Q6H [facility] Last Infusion: 09/17/25 16:37 Dose: Infused Documented By: YOUNG Vancomycin HCl 1,000 mg/ (Sodium Chloride) 270 mls @ 270 mls/hr IV Q12H [facility] Last Infusion: 09/17/25 15:30 Dose: Infused Documented By: YOUNG Magnesium Hydroxide (Milk Of Magnesia 30 Ml Oral.Susp) 30 ml PO DAILY PRN PRN Reason: Constipation Melatonin (Melatonin 3 Mg Tablet) 6 mg PO BEDTIME PRN PRN Reason: Insomnia Ondansetron HCl (Ondansetron Hcl 4 Mg/2 Ml Vial) 4 mg IVPUSH Q8H PRN PRN Reason: Nausea and Vomiting Pharmacy Consult (Consult Rx Vancomycin Dosing) 1 each MISCELLANE DAILY PRN PRN Reason: Consult order Sodium Chloride (0.9 % Sodium Chloride Flush 3 Ml Syringe) 3 ml IVFLUSH QSHIFT [facility] Last Admin: 09/17/25 15:42 Dose: 3 ml Documented By: YOUNG Labs 09/15/25 05:53 09/18/25 07:04 Labs: Laboratory Results - last 24 hr 09/17/25 09/17/25 05:43 12:07 Anion Gap 13 Estim Creat Clear Calc 97.3 Estimated GFR > 60 Random Glucose 114 Calcium 8.9 Random Vancomycin 16.8 Microbiology Microbiology Results: Microbiology 09/15/25 23:42 Urine Culture - Final Urine clean catch No growth. 09/14/25 13:20 Blood Culture - Preliminary Blood - Venous No growth after 48 hours. 09/14/25 13:01 Blood Culture - Preliminary Blood - Venous No growth after 48 hours. Assessment and Plan (1) ETOH abuse: Status: Acute (2) Narcotic abuse: Status: Acute (3) Alcoholic hepatitis: Status: Acute (4) TRINH (acute kidney injury): Status: Acute (5) Metabolic acidosis: Status: Acute (6) Sepsis: Status: Acute (7) Encephalopathy acute: Status: Acute (8) Metabolic encephalopathy: Status: Acute (9) Toxic encephalopathy: Status: Acute (10) Spondylosis of lumbar region without myelopathy or radiculopathy: Status: Acute (11) Chronic pain syndrome: Status: Acute (12) Pneumonia: Status: Acute (13) Acute hypoxemic respiratory failure: Status: Acute Plan 74-year-old male with hypertension, gout, chronic pain, and alcohol use disorder presenting after an unwitnessed fall, found to have severe sepsis due to right lower lobe pneumonia, acute hypoxic respiratory failure, TRINH, transaminitis with biliary ductal dilation, toxic-metabolic encephalopathy, and unexpected opioid positivity on urine toxicology. Pneumonia with Acute Hypoxic Respiratory Failure and Severe Sepsis Right lower lobe pneumonia (CT: groundglass changes, bronchial thickening) clinically better wean off O2 change to PO Augmentin Acute Kidney Injury (TRINH)resolved Acute Metabolic Acidosis - RESOLVED Alcoholic hepatitis Elevated LFTs Biliary Ductal Dilation Imaging: intrahepatic, common bile, and pancreatic duct dilation; possible distal CBD lesion vs. stone No abdominal pain, no evidence of acute cholangitis EtOH abuse noted Plan: MRCP --no choledocholithasis or cholecystitis Trend LFTs Toxic-Metabolic Encephalopathy resolved Opioid Use/Exposure Urine toxicology positive for opioids; patient not on prescribed opioids Unclear source?possible unreported use or exposure Plan: Monitor for signs of opioid toxicity or withdrawal Reassess medication reconciliation and clarify history with patient/family Avoid further opioid administration unless clinically indicated Alcohol Use Disorder active withdrawal Unwitnessed Fall Likely multifactorial: possible alcohol, infection, metabolic derangements, and possible opioid effect No acute traumatic injury on imaging Plan: Telemetry monitoring Physical therapy evaluation prior to discharge Chronic Pain Narcotic abuse - opioids No longer on opioids per history, but positive opioid on Utox Gabapentin resumed after resolution of TRINH Plan: Continue gabapentin 300mg TID PO Reassess pain management plan in light of Utox findings Hypertension resume meds in the morning Gouty Arthritis Renally dose allopurinol DVT: Heparin 5000 TID SQ CODE: FULL CODE Quality Stroke Does the patient have a stroke diagnosis?: No VTE Prior VTE?: No VTE Risk Level:: Medical - moderate - high VTE Device Contraindication: N/A - Device Ordered VTE Drug Contraindication: N/A - Med Ordered
[2025-09-18] VITALS (9 sets, daily range): BP systolic 141–191; BP diastolic 64–96; PULSE 64–76; RESP 12–18; TEMP 36.1–37; O2SAT 93–99
[2025-09-18] MEDS: Thiamine HCL 200 MG in 0.9 % Sodium Chloride 100 ML 204 MG IV ×2 (05:56→17:43)
[2025-09-18 07:28] LABS: Creatinine Clr Calc Pharmacy 113.3; Estimated Glomerular Filt Rate > 60
[2025-09-18] MEDS: Ferrous Sulfate 324 MG TABLET.DR PO (08:26)
[2025-09-18] MEDS: 0.9 % Sodium Chloride Flush 3 ML SYRINGE IVFLUSH ×3 (08:28→20:25)
[2025-09-18] MEDS: guaiFEN/Codeine SF 200/20/10ML 10 ML LIQUID PO (15:59)
[2025-09-18] MEDS: Albuterol/Iprat 2.5/0.5MG 3 ML AMPUL.NEB INHALE (16:07)
[2025-09-19] VITALS (10 sets, daily range): BP systolic 113–180; BP diastolic 61–88; PULSE 62–97; RESP 16–18; TEMP 36.4–37; O2SAT 94–98
[2025-09-19] MEDS: Thiamine HCL 200 MG in 0.9 % Sodium Chloride 100 ML 204 MG IV (06:25)
[2025-09-19 06:34] LABS: Creatinine Clr Calc Pharmacy 106.3; Estimated Glomerular Filt Rate > 60
[2025-09-19] MEDS: Albuterol/Iprat 2.5/0.5MG 3 ML AMPUL.NEB INHALE ×2 (08:05→14:30)
[2025-09-19] MEDS: Ferrous Sulfate 324 MG TABLET.DR PO (08:12)
[2025-09-19] MEDS: 0.9 % Sodium Chloride Flush 3 ML SYRINGE IVFLUSH (08:13)
[2025-09-19] MEDS: guaiFEN/Codeine SF 200/20/10ML 10 ML LIQUID PO (09:19)
--- NOTE | 2025-09-19 09:54 | HO.PM.IMPN ---
Subjective Subjective Date of Service: 09/19/25 Interval History: Much better today BP also better repeat CXR yesterday, no signficant finding No hypoxia Physical Exam Vital Signs: Vital Signs: Last Vital Signs Temp 97.7 F 09/19/25 08:00 Pulse 68 09/19/25 08:14 Resp 16 09/19/25 08:14 BP 156/88 H 09/19/25 09:14 Pulse Ox 96 09/19/25 08:00 O2 Del Method Room Air 09/19/25 08:00 O2 Flow Rate 2 09/17/25 15:48 Oxygen Flow Rate 3 09/14/25 12:32 BMI result Body Mass Index 31.1 Const: Other: General: AO X 3, no acute distress Resp: CTA bilateral CVS: S1,S2,RRR GI: +BS, NT, no distention Skin: No rash Neuro: motor grossly intact Psych: appropriate affect Objective Data Active Medications Acetaminophen (Acetaminophen 325 Mg Tablet) 650 mg PO Q6H PRN PRN Reason: Pain, Mild 1-3,fever,headache Last Admin: 09/16/25 07:50 Dose: 650 mg Documented By: NATHANAEL Albuterol/Ipratropium (Albuterol/Iprat 2.5/0.5mg 3 Ml Ampul.Neb) 3 ml INHALE RQ6H WHILE AWAKE [facility] Last Admin: 09/19/25 08:05 Dose: 3 ml Documented By: DALIA Albuterol/Ipratropium (Albuterol/Iprat 2.5/0.5mg 3 Ml Ampul.Neb) 3 ml INHALE Q2H PRN PRN Reason: Shortness of Breath/Wheezing Last Admin: 09/18/25 16:07 Dose: 3 ml Documented By: HEATHER Allopurinol (Allopurinol 100 Mg Tablet) 200 mg PO BID [facility] Last Admin: 09/19/25 08:12 Dose: 200 mg Documented By: JASMYN Amlodipine Besylate (Amlodipine Besylate 2.5 Mg Tablet) 2.5 mg PO DAILY [facility]; Protocol Last Admin: 09/19/25 09:19 Dose: 2.5 mg Documented By: JASMYN Amoxicillin/Clavulanate Potassium (Amoxicillin/Potassium Clav 875 Mg Tablet) 875 mg PO Q12H [facility] Last Admin: 09/19/25 06:23 Dose: 875 mg Documented By: DIANA Atenolol (Atenolol 50 Mg Tablet) 50 mg PO DAILY [facility]; Protocol Last Admin: 09/19/25 08:11 Dose: 50 mg Documented By: JASMYN Calcium Carbonate (Calcium Carbonate 750 Mg Tab.Chew) 750 mg PO Q4H PRN PRN Reason: Heartburn Ferrous Sulfate (Ferrous Sulfate 324 Mg Tablet.Dr) 324 mg PO DAILY [facility] Last Admin: 09/19/25 08:12 Dose: 324 mg Documented By: JASMYN Folic Acid (Folic Acid 1 Mg Tablet) 1 mg PO DAILY [facility] Last Admin: 09/19/25 08:12 Dose: 1 mg Documented By: JASMYN Gabapentin (Gabapentin 300 Mg Capsule) 300 mg PO TID [facility] Last Admin: 09/19/25 08:12 Dose: 300 mg Documented By: JASMYN Guaifenesin/Codeine Phosphate (Guaifen/Codeine Sf 200/20/10ml 10 Ml Liquid) 10 ml PO Q6H PRN PRN Reason: Cough Last Admin: 09/19/25 09:19 Dose: 10 ml Documented By: JASMYN Heparin Sodium (Porcine) (Heparin Sodium,Porcine 5,000 Unit/Ml Vial) 5,000 unit SUBCUT Q12H [facility] Last Admin: 09/19/25 06:23 Dose: 5,000 unit Documented By: DIANA Thiamine HCl 200 mg/ Sodium (Chloride) 102 mls @ 204 mls/hr IV Q12H [facility] Last Infusion: 09/19/25 07:13 Dose: Infused Documented By: JASMYN Magnesium Hydroxide (Milk Of Magnesia 30 Ml Oral.Susp) 30 ml PO DAILY PRN PRN Reason: Constipation Melatonin (Melatonin 3 Mg Tablet) 6 mg PO BEDTIME PRN PRN Reason: Insomnia Ondansetron HCl (Ondansetron Hcl 4 Mg/2 Ml Vial) 4 mg IVPUSH Q8H PRN PRN Reason: Nausea and Vomiting Sodium Chloride (0.9 % Sodium Chloride Flush 3 Ml Syringe) 3 ml IVFLUSH QSHIFT [facility] Last Admin: 09/19/25 08:13 Dose: 3 ml Documented By: JASMYN Labs 09/15/25 05:53 09/19/25 05:20 Labs: Laboratory Results - last 24 hr 09/18/25 09/19/25 12:25 05:20 Estim Creat Clear Calc 106.3 Estimated GFR > 60 Random Vancomycin 11.7 L Microbiology Microbiology Results: Microbiology 09/15/25 23:42 Urine Culture - Final Urine clean catch No growth. 09/14/25 13:20 Blood Culture - Preliminary Blood - Venous No growth after 48 hours. 09/14/25 13:01 Blood Culture - Preliminary Blood - Venous No growth after 48 hours. Assessment and Plan (1) ETOH abuse: Status: Acute (2) Narcotic abuse: Status: Acute (3) Alcoholic hepatitis: Status: Acute (4) TRINH (acute kidney injury): Status: Acute (5) Metabolic acidosis: Status: Acute (6) Sepsis: Status: Acute (7) Encephalopathy acute: Status: Acute (8) Metabolic encephalopathy: Status: Acute (9) Toxic encephalopathy: Status: Acute (10) Spondylosis of lumbar region without myelopathy or radiculopathy: Status: Acute (11) Chronic pain syndrome: Status: Acute (12) Pneumonia: Status: Acute (13) Acute hypoxemic respiratory failure: Status: Acute Plan 74-year-old male with hypertension, gout, chronic pain, and alcohol use disorder presenting after an unwitnessed fall, found to have severe sepsis due to right lower lobe pneumonia, acute hypoxic respiratory failure, TRINH, transaminitis with biliary ductal dilation, toxic-metabolic encephalopathy, and unexpected opioid positivity on urine toxicology. Pneumonia (Right lower lobe pneumonia (CT: groundglass changes, bronchial thickening) with Acute Hypoxic Respiratory Failure and Severe Sepsis--sepsis resolved Was on IV Abx changed to PO Augmentin and will treate for 7 days weaned off O2 repeat CXR yesterday, atelectasis Acute Kidney Injury (TRINH)resolved Acute Metabolic Acidosis - RESOLVED Alcoholic hepatitis Elevated LFTs Biliary Ductal Dilation Imaging: intrahepatic, common bile, and pancreatic duct dilation; possible distal CBD lesion vs. stone No abdominal pain, no evidence of acute cholangitis MRCP --no choledocholithasis or cholecystitis LFTs have trended down Toxic-Metabolic Encephalopathy resolved Opioid Use/Exposure Urine toxicology positive for opioids; patient not on prescribed opioids Unclear source?possible unreported use or exposure No signs of opioid toxicity or withdrawal Avoid further opioid administration unless clinically indicated Alcohol Use Disorder No active withdrawal Unwitnessed Fall Likely multifactorial: possible alcohol, infection, metabolic derangements, and possible opioid effect No acute traumatic injury on imaging PT recommends home with serivices Chronic Pain Narcotic abuse - opioids No longer on opioids per history, but positive opioid on Utox Gabapentin resumed after resolution of TRINH Continue gabapentin 300mg TID PO Reassess pain management plan in light of Utox findings Hypertension continue atenolol and added Norvasc Gouty Arthritis Renally dose allopurinol DVT: Heparin 5000 TID SQ CODE: FULL CODE Quality Stroke Does the patient have a stroke diagnosis?: No VTE Prior VTE?: No VTE Risk Level:: Medical - moderate - high VTE Device Contraindication: N/A - Device Ordered VTE Drug Contraindication: N/A - Med Ordered
--- NOTE | 2025-09-19 10:22 | PM.DS ---
DS: Providers Provider Date of Service: 09/17/25 Date of admission: 09/14/25 17:37 Date of discharge: 09/17/25 Primary care physician: FANTA Farias DS: Diagnosis Discharge Diagnosis (1) ETOH abuse: Status: Acute (2) Narcotic abuse: Status: Acute (3) Alcoholic hepatitis: Status: Acute (4) TRINH (acute kidney injury): Status: Acute (5) Metabolic acidosis: Status: Acute (6) Sepsis: Status: Acute (7) Encephalopathy acute: Status: Acute (8) Metabolic encephalopathy: Status: Acute (9) Toxic encephalopathy: Status: Acute (10) Spondylosis of lumbar region without myelopathy or radiculopathy: Status: Acute (11) Chronic pain syndrome: Status: Acute (12) Pneumonia: Status: Acute (13) Acute hypoxemic respiratory failure: Status: Acute DS: Summary Hospital Course Hospital Course: 74-year-old male with a history of hypertension, gout, chronic pain, degenerative arthritis, and alcohol use disorder presented after an unwitnessed fall. He was found wedged between his dresser and bedroom wall, disoriented, and hypotensive (SBP 70s) on EMS arrival. In the ED, he was febrile (103.2?F), hypoxic (O2 sat 94% on 3L NC), and had leukocytosis (WBC 16,000), elevated LFTs, lactic acidosis (2.7 ? 1.1 after fluids), and TRINH (Cr 1.64). Imaging revealed right lower lobe pneumonia and biliary ductal dilation with possible distal CBD lesion/stone. The patient reported cough for two weeks and recent alcohol use, but denied abdominal pain. He was admitted for management of severe sepsis secondary to pneumonia, acute hypoxic respiratory failure, TRINH, and toxic-metabolic encephalopathy. Hospital Course: 1. Severe Sepsis due to Right Lower Lobe Pneumonia with Acute Hypoxic Respiratory Failure Treated with IV vancomycin and piperacillin-tazobactam with good effect Blood cultures negative; respiratory pathogen panel negative. Hypoxemia resolved; patient weaned off supplemental oxygen. Afebrile and hemodynamically stable at discharge. transitioned to oral Augmentin for completion of antibiotic course. 2. Acute Kidney Injury (TRINH) Likely secondary to sepsis and hypoperfusion. Responded well to IV fluids; creatinine returned to baseline. Renal function stable at discharge. 3. Transaminitis and Biliary Ductal Dilation Imaging showed intrahepatic, common bile, and pancreatic duct dilation with possible distal CBD lesion/stone. No abdominal pain or evidence of cholangitis. MRCP: 1. Dilated common bile duct measuring 1.6 cm with intrahepatic biliary duct dilatation as well as concurrent main pancreatic duct dilatation with smooth tapering of the level of the sphincter of Oddi; sphincter of Oddi dysfunction suspected. 2. No cholelithiasis nor choledocholithiasis identified. 4. Toxic-Metabolic Encephalopathy Multifactorial: infection, TRINH, metabolic derangements, possible substance effect. Mental status improved with resolution of underlying issues. Gabapentin held during TRINH, now resumed, presently back to his baseline 5. Opioid Use/Exposure Unexpected opioid positivity on urine toxicology; no prescribed opioids. No signs of opioid toxicity or withdrawal during admission. 6. Alcohol Use Disorder No withdrawal symptoms during admission. Monitored with [facility] protocol; received thiamine supplementation. 7. Unwitnessed Fall likely multifactorial: infection, metabolic derangements, possible substance effect. No acute traumatic injury identified. Physical therapy evaluation completed; safe for discharge home with home services. 8. Chronic Pain and Gout Gabapentin resumed after TRINH resolved. Allopurinol resumed at renally adjusted dose. 9. Hypertension, BP have been high, initially Atenolol was on hold but has been restarted and Norvasc 2.5 mg added and may need further adjustment on outpatient basis. Discharge Condition: Patient is afebrile, hemodynamically stable, no longer hypoxic, and at cognitive baseline. Renal function has normalized. Ambulating safely with baseline assistance. Wishes to return home. dispo: Home with [facility] Time Attestation Discharge Coordination Time (in mins): 45 Quality: Safe Use of Opioids Does Pt have an Active Cancer Diagnosis on the Problem List?: No Quality: Stroke Does the patient have a stroke diagnosis?: No Physical Exam Vital Signs: Vital Signs: Last Vital Signs Temp 98.4 F 09/17/25 11:54 Pulse 67 09/17/25 11:54 Resp 18 09/17/25 11:54 BP 139/68 09/17/25 11:54 Pulse Ox 96 09/17/25 11:54 O2 Del Method Nasal Cannula 09/17/25 11:54 O2 Flow Rate 2 09/17/25 11:54 Oxygen Flow Rate 3 09/14/25 12:32 BMI result Body Mass Index 31.1 DS: Data Data Completed and Pending Labs on day of discharge: Laboratory Results - last 24 hr 09/17/25 09/17/25 05:43 12:07 Creatinine 0.71 Estim Creat Clear Calc 97.3 Estimated GFR > 60 Random Vancomycin 16.8 Preliminary micro results at discharge 09/14/25 13:20 Blood Culture - Preliminary Blood - Venous No growth after 48 hours. 09/14/25 13:01 Blood Culture - Preliminary Blood - Venous No growth after 48 hours. Discharge Plan Discharge Anticipated Discharge Date/Time: 09/19/25 10:22 Patient Disposition: Home Health Service Discharge Diagnosis: Pneumonia, metabolic encephalopathy Referrals: Roberto BRADLEY [Outside] - 3-5 Days Mike Gomez PA [Primary Care Provider, Internal Medicine] - 1 Week Discharge Medications: New amoxicillin-pot clavulanate 875-125 mg Tablet 1 tab PO Q12H Qty: 8 0RF Continued gabapentin 300 mg capsule 300 mg PO TID albuterol sulfate 90 mcg/actuation HFA aerosol inhaler 1 puff inhalation QID PRN (Reason: Wheezing) atenolol 50 mg tablet 50 mg PO DAILY ferrous sulfate [FeroSul] 325 mg (65 mg iron) tablet 325 mg PO DAILY allopurinol 100 mg tablet 200 mg PO BID bumetanide 1 mg tablet 1 mg PO BID Discharge Orders: Discharge Order (Routine); Ordered 09/19/25 Ordered By: Jean-Paul Abbasi Diet: Advance to usual diet Activity on Discharge: As tolerated Stand Alone Forms: Patient Portal Discharge page Print Language: Spanish Care Plan Goals: recovery from Sepsis, Pneumonia, metabolic encephalopathy, kidney failure and Health Concerns: Sepsis, pneumonia, encephalopathy, kidney failure, alcohol use disorder Plan of Treatment: Take Augmentin as recommended and follow up with your Doctor in a week, call for appointment Assessment: see above
--- NOTE | 2025-09-19 10:28 | W.MHC.F2F ---
Service Date Service Date: 09/19/25 Encounter Date of encounter: 09/19/25 Reasons for Services Signs and symptoms assessed: shortness of breath and weakness from sepsis, penumonia, renal failure and encephalopathy Reason for custodial: medication management, medication treatment and teach disease management Reason for physical therapy: home safety and mobility, therapeutic exercises and energy conservation Homebound: Leaving the home is medically contraindicated at this time without the asist of a device and/or another person due th the listed conditions above and below. Reason homebound: fall risk related to blood pressure changes and weakness related to hospital stay Homebound supporting statement: Patient admitted and treated for sepsis, pneumonia, encephalopathy, and acute kidney injury. Due to ongoing weakness and significant functional decline following hospitalization, the patient is currently homebound. He is unable to leave home without considerable effort or assistance and requires supportive care for basic activities of daily living. Leaving the home is medically contraindicated except for essential medical appointments. Certification: Based on the above findings, I certify that this patient is confined to the home and needs intermittent custodial care, physical therapy and/or speech therapy, or continues to need occupational therapy. The patient is under my care, and I have initiated the establishment of the plan of care. The patient will be followed by a physician who will periodically review the plan of care. Time Spent With Patient Time: Total time managing care of this patient today ____ minutes.
[2025-09-19 11:16] LABS: Alanine Aminotransferase 45 U/L (0-40); Albumin Level 3.2 g/dL (3.5-5.0); Alkaline Phosphatase 105 U/L (39-117); Aspartate Amino Transferase 44 U/L (5-37); Total Protein 6.0 g/dL (6.5-8.0)
--- NOTE | 2025-09-19 15:19 | MHC.CM.PN ---
Patient medically cleared for dc home w/ resumption of [facility] services. [facility] aware of dc. Patient requesting BLS transport. Scheduled for 5pm. Patient & RN aware. [facility] delivered.
== END 2025-09-19 17:12 | disposition home health service (06) | DRG 871 ==
LOC: HO.ED 14:05 → HO.EDOVER 17:47 → HO.IMC 09-15 02:06 → HO.S3 09-16 11:20
PROVIDERS: Hospitalist; Internal Medicine; Admitting Provider Physician Assistant Medical; Emergency Provider Emergency Medicine; PCP Physician Assistant Medical; Visit Provider Internal Medicine
DX: A41.9 Sepsis, unspecified organism (principal); G92.8 Other toxic encephalopathy; J18.9 Pneumonia, unspecified organism; J96.01 Acute respiratory failure with hypoxia; N17.9 Acute kidney failure, unspecified; F10.10 Alcohol abuse, uncomplicated; F11.10 Opioid abuse, uncomplicated; K70.10 Alcoholic hepatitis without ascites; R65.20 Severe sepsis without septic shock; W19.XXXA Unspecified fall, initial encounter; K83.8 Other specified diseases of biliary tract; M10.9 Gout, unspecified; G89.4 Chronic pain syndrome; I10 Essential (primary) hypertension; Z20.822 Contact with and (suspected) exposure to COVID-19; Z79.899 Other long term (current) drug therapy
CPT/HCPCS: 36415; 70450; 71046; 71260; 72125; 74177; 74181; 76705; 80048; 80053; 80076; 80202; 80307; 81001; 82010; 82140; 82247; 82550; 82565; 82803; 83605; 83735; 84100; 84484; 85025; 85610; 85730; 87040; 87086; 87633; 87637; 94640; 97116; 97162; 99285; J0696; J1644; J2543; J3373; J3374; J3411; J7120; Q9967

== ENCOUNTER → 2025-09-14 13:13 | Outpatient (BNV) | payer MEDICARE, MEDICAID, SELFPAY | PROVIDERS: Emergency Provider Emergency Medicine; PCP Physician Assistant Medical; Visit Provider Radiology Diagnostic Radiology | DX: M47.812 Spondylosis without myelopathy or radiculopathy, cervical region (principal); I67.2 Cerebral atherosclerosis; R90.82 White matter disease, unspecified | CPT/HCPCS: 70450; 72125 ==

== ENCOUNTER 2025-09-14 17:37 | Outpatient (BNV) | payer MEDICARE, MEDICAID, SELFPAY | END 2025-09-18 12:09 | PROVIDERS: Admitting Provider Physician Assistant Medical; Emergency Provider Emergency Medicine; PCP Physician Assistant Medical; Visit Provider Radiology Diagnostic Radiology | DX: J18.9 Pneumonia, unspecified organism (principal) | CPT/HCPCS: 71046 ==

== ENCOUNTER → 2025-09-14 17:37 | Outpatient (BNV) | payer MEDICARE, MEDICAID, SELFPAY | PROVIDERS: Admitting Provider Physician Assistant Medical; Emergency Provider Emergency Medicine; PCP Physician Assistant Medical; Visit Provider Physician Assistant Medical | DX: F10.10 Alcohol abuse, uncomplicated (principal); F11.10 Opioid abuse, uncomplicated; K70.10 Alcoholic hepatitis without ascites; N17.9 Acute kidney failure, unspecified; E87.20 Acidosis, unspecified; A41.9 Sepsis, unspecified organism; G93.40 Encephalopathy, unspecified; G93.41 Metabolic encephalopathy; G92.9 Unspecified toxic encephalopathy; M47.816 Spondylosis without myelopathy or radiculopathy, lumbar region; G89.4 Chronic pain syndrome; J18.9 Pneumonia, unspecified organism; J96.01 Acute respiratory failure with hypoxia | CPT/HCPCS: 99232; 99239; G0180 ==